=== PATIENT | male | born 1990 | race Caucasian/White ===

== ENCOUNTER 2019-12-12 12:21 | Inpatient (IN) | payer OTHER, BC ==
[2019-12-12] MEDS ORDERED: Metoclopramide 10 MG/2 ML SDV IVPUSH ONE (12:29)
[2019-12-12] MEDS ORDERED: Dextrose 5%-0.9% NaCl 1,000 ML IV SCH (12:30)
--- NOTE | 2019-12-12 12:34 | EDM.PDOCBH ---
ED HPI GENERAL MEDICAL PROBLEM - General Chief Complaint: Behavioral/Psych Stated Complaint: [facility] Time Seen by Provider: 12/12/19 12:29 Source of Information: Reports: Patient, EMS, Police History Limitations: Reports: No Limitations - History of Present Illness INITIAL COMMENTS - FREE TEXT/NARRATIVE: 29-year-old male presents to the ED per [facility]. Police are also here. They indicate that they got a call through dispatch for a 28-year-old male who had intentionally taken an overdose of medications in a suicide attempt. Patient appears very drowsy and is mildly dysarthric but is able to provide a useful history terms of old injuries but he cannot identify a specific time when he took medication. Apparently he took several tablets of Percocet again dosage unknown and not his prescription. Also took an excessive amount of Adderall reportedly. Unclear if he took any other medications. Has an unambiguous wish to be . He has many times that he does not wish to be here. He never gave any other further history as to why he was feeling suicidal. He is nauseated and has taken some Zofran. Denies any vomiting. Onset: Unknown/Unsure (On what time he took medications. Percocet contains Tylenol and oxycodone.) Onset Date: 12/12/19 Duration: Hour(s): Location: Reports: Generalized Quality: Reports: Other Severity: Moderate (Is somewhat lethargic and dysarthric.) Improves with: Reports: None Worsens with: Reports: None Context: Denies: Activity, Exercise, Lifting, Sick Contact, Trauma, Other Associated Symptoms: Reports: Loss of Appetite, Malaise, Nausea/Vomiting ( Nausea without vomiting), Weakness. Denies: Confusion, Chest Pain, Cough, cough w sputum, Diaphoresis, Fever/Chills, Headaches Treatments LEVER TENDER: Reports: Other (see below) (Tensional overdose of Percocet again dosage unknown. Apparently also Adderall tablets again dosage unknown. Possible other medications as well.) - Related Data Allergies Allergy/AdvReac Type Severity Reaction Status Date / Time No Known Allergies Allergy Verified 12/12/19 12:28 Home Meds: Home Meds Loratadine 10 mg PO DAILY PRN 12/12/19 [History] Past Medical History HEENT History: Reports: Allergic Rhinitis - Past Surgical History Oncologic Surgical History: Reports: Other (See Below) (Post reduction internal fixation of fracture left forearm with plates and screws. Type injury to the right foot from hydraulic injury on a work over rig. Apparently multiple fractures in his metatarsals. Abdominal surgery) ED ROS GENERAL - Review of Systems Review Of Systems: See Below Constitutional: Reports: Malaise, Fatigue, Decreased Appetite. Denies: Fever, Chills HEENT: Reports: No Symptoms Respiratory: Reports: No Symptoms Cardiovascular: Reports: No Symptoms Endocrine: Reports: Fatigue GI/Abdominal: Reports: Nausea (And suggesting the Percocet tablets.) : Reports: No Symptoms Musculoskeletal: Reports: Other (Chronic pain right foot) Skin: Reports: No Symptoms Neurological: Reports: Dizziness, Difficulty Walking, Weakness, Change in Speech (Arthritic speech again since taking overdose this morning). Denies: Confusion, Headache, Numbness, Pre-Existing Deficit, Seizure, Syncope, Tingling , Tremors, Trouble Speaking Psychiatric: Reports: Depression, Suicidal Ideation, Other (Beside attempt today by taking an excessive amount of) Hematologic/Lymphatic: Reports: No Symptoms ( medications not his.) Immunologic: Reports: No Symptoms ED EXAM, BEHAVIORAL HEALTH - Physical Exam Exam: See Below Exam Limited By: Physical Impairment (Quite lethargic and dysarthric speech secondary to being impaired by narcotic) General Appearance: Lethargic, Mild Distress, Other (Vital signs show temperature 36.1 with a heart rate of 85 and sinus respiratory 16 BP is 1965 with O2 sats of 96% on room air.) Eye Exam: Bilateral Eye: Normal Inspection (No nystagmus.), PERRL (Pulses are small 3 mm and minimally responsive to light.) Throat/Mouth: Normal Inspection, Normal Lips, Normal Oropharynx, Other (Tongue is moist.) Head: Atraumatic, Normocephalic Neck: Normal Inspection, Supple, Non-Tender, Full Range of Motion. No: Lymphadenopathy (L), Lymphadenopathy (R) Respiratory/Chest: No Respiratory Distress, Lungs Clear, Normal Breath Sounds, No Accessory Muscle Use Cardiovascular: Normal Peripheral Pulses, Regular Rate, Rhythm, No Edema, No Gallop, No Murmur, No Rub GI/Abdominal: Normal Bowel Sounds, Soft, Non-Tender, No Organomegaly, No Abnormal Bruit, No Mass, Pelvis Stable Back Exam: Normal Inspection, Full Range of Motion. No: CVA Tenderness (L), CVA Tenderness (R) Extremities: Normal Inspection, Normal Range of Motion, Non-Tender, No Pedal Edema, Normal Capillary Refill, Other (R extensor surface left forearm from previous open reduction internal fixation of fracture radius and ulna.) Neurological: Alert, Normal Reflexes, No Motor/Sensory Deficits, Dysarthria ( Mild dysarthria speech is still easily understood.), Other (And is unable to perform alternating movements for [id number] exam.) Psychiatric: Restless, Agitated ([place] agitated.), Suicidal Thoughts. No: Oriented (Went to do a time.), Visual Hallucinations, Grandiose Thoughts, Pressured Speech, Paranoid Thoughts Skin Exam: Warm, Dry, Intact, Normal color, No rash Endotracheal Intubation - Endotracheal Intubation Time of Intubation: 14:10 ET Intubation Indication: Respiratory Failure, Airway Protection Preparation: Suction, Balloon Tested, BVM Set Up, Difficult Airway Equip Pre-Oxygenation: Assisted with BVM, 100% FiO2 Anesthesia Meds: Etomidate, Midazolam (2mg ), Succinylcholine (140) Placement: Orotracheal Cords Visualized: Yes, Grade 1 Number of Attempts: 1 Confirmed By: CO2 Indicator, Bilateral Breath Sounds, Chest Xray Tube Secured By: By RT EKG INTERPRETATION EKG Date: 12/12/19 Time: 12:37 Rhythm: NSR Rate (Beats/Min): 67 [place]: LAD-Left [place] Deviation (Is 11 degrees) P-Wave: Enlarged (That her left atrial hypertrophy.) QRS: Other (Criteria for left ventricular appear to be due to deep S wave in V2) ST-T: Normal QT: Normal EKG Interpretation Comments: Borderline ECG COURSE, BEHAVIORAL HEALTH COMP - Course Vital Signs: Last Vital Signs Temp 36.1 C 12/12/19 12:25 Pulse 67 12/12/19 16:14 Resp 16 12/12/19 12:25 BP 104/68 12/12/19 16:14 Pulse Ox 100 12/12/19 16:14 Orders, Labs, Meds: Active Orders 24 hr Category Date Time Status Admission Status [Patient Status] [ADT] Routine ADT 12/12/19 16:16 Ordered EKG Documentation Completion [RC] STAT Care 12/12/19 12:31 Active Oxygen Therapy [RC] ASDIRECTED Care 12/12/19 12:32 Active RASS Sedation Scale [RC] ASDIRECTED Care 12/12/19 14:02 Active Urinary Catheter Assessment [RC] ASDIRECTED Care 12/12/19 14:04 Active Urinary Catheter Insertion [Insert Urinary Catheter] [ Care 12/12/19 14:05 Ordered OM.PC] Stat Ventilator Assessment [RT Ventilator, Adult] [] Care 12/12/19 14:00 Active ASDIRECTED Acetylcysteine [Acetadote 20%] 12,300 mg Med 12/12/19 16:30 Active Dextrose 5% in Water 200 ml IV ONETIME Dextrose 5%-0.9% NaCl [Dextrose 5%-Normal Saline] 1,000 Med 12/12/19 12:30 Active ml IV ASDIRECTED Lactated Ringers [Ringers, Lactated] 1,000 ml Med 12/12/19 16:02 Active IV .BOLUS Midazolam [Versed 5 MG/ML] 50 mg Med 12/12/19 15:15 Active Sodium Chloride 0.9% [Normal Saline] 40 ml IV TITRATE Norepinephrine [Levophed] 4 mg Med 12/12/19 14:15 Active Dextrose 5% in Water 246 ml IV TITRATE propofoL [Diprivan 50 ML] 50 ml Med 12/12/19 14:15 Active IV TITRATE Desired Level of Sedation (RASS) [AST] Click To Edit Ot 12/12/19 14:02 Ordered Medication Orders Dextrose/Sodium Chloride (Dextrose 5%-Normal Saline) 1,000 mls @ 999 mls/hr IV ASDIRECTED BRIANNA Last Admin: 12/12/19 12:44 Dose: 999 mls/hr Norepinephrine Bitartrate 4 mg (/ Dextrose/Water) 250 mls @ 15 mls/hr IV TITRATE BRIANNA; Protocol Last Titration: 12/12/19 15:58 Dose: 5 mcg/min, 18.75 mls/hr Admin: 12/12/19 14:14 Dose: 4 mcg/min, 15 mls/hr Propofol (Diprivan 50 Ml) 50 mls @ 2.449 mls/hr IV TITRATE BRIANNA; Protocol Last Admin: 12/12/19 14:23 Dose: 5 mcg/kg/min, 2.449 mls/hr Midazolam HCl 50 mg/ Sodium (Chloride) 50 mls @ 0.5 mls/hr IV TITRATE BRIANNA; Protocol Last Titration: 12/12/19 15:44 Dose: 5 mg/hr, 5 mls/hr Admin: 12/12/19 15:40 Dose: 0.5 mg/hr, 0.5 mls/hr Lactated Ringer's (Ringers, Lactated) 1,000 mls @ 999 mls/hr IV .BOLUS ONE Stop: 12/12/19 17:02 Last Admin: 12/12/19 16:07 Dose: 999 mls/hr Acetylcysteine 12,300 mg/ (Dextrose/Water) 261.5 mls @ 261.5 mls/hr IV ONETIME ONE Stop: 12/12/19 17:29 Laboratory Tests 12/12/19 12/12/19 12/12/19 Range/Units 12:50 12:50 12:50 WBC 5.66 (4.23-9.07) K/mm3 RBC 6.07 (4.63-6.08) M/mm3 Hgb 17.6 H (13.7-17.5) gm/dl Hct 53.3 H (40.1-51.0) % MCV 87.8 (79.0-92.2) fl MCH 29.0 (25.7-32.2) pg MCHC 33.0 (32.2-35.5) g/dl RDW Std Deviation 44.5 H (35.1-43.9) fL Plt Count 189 (163-337) K/mm3 MPV 10.6 (9.4-12.3) fl Neut % (Auto) 64.7 (34.0-67.9) % Lymph % (Auto) 21.0 L (21.8-53.1) % [place] % (Auto) 13.1 H (5.3-12.2) % Eos % (Auto) 0.5 L (0.8-7.0) Baso % (Auto) 0.5 (0.1-1.2) % Neut # (Auto) 3.66 (1.78-5.38) K/mm3 Lymph # (Auto) 1.19 L (1.32-3.57) K/mm3 [place] # (Auto) 0.74 (0.30-0.82) K/mm3 Eos # (Auto) 0.03 L (0.04-0.54) K/mm3 Baso # (Auto) 0.03 (0.01-0.08) K/mm3 Manual Slide Review Abnormal smear Puncture Site ABG pH (7.35-7.45) ABG pCO2 (35.0-45.0) mmHg ABG pO2 (80.0-100.0) mmHg ABG HCO3 (22.0-26.0) meq/L ABG O2 Saturation (96.0-97.0) % ABG Base Excess (-2-2.0) A-a Gradient mmHg O2 Delivery Device FiO2 (21.00-100.00) % Tidal Volume cc PEEP cmH20 Sodium 138 (136-145) mEq/L Potassium 4.1 (3.5-5.1) mEq/L Chloride 102 (98-107) mEq/L Carbon Dioxide 26 (21-32) mEq/L Anion Gap 14.1 (5-15) BUN 16 (7-18) mg/dL Creatinine 1.4 H (0.7-1.3) mg/dL Est Cr Clr Drug Dosing 73.96 mL/min Estimated GFR (MDRD) 59 (>60) mL/min BUN/Creatinine Ratio 11.4 L (14-18) Glucose 203 H (74-106) mg/dL Lactic Acid (0.4-2.0) mmol/L Calcium 8.6 (8.5-10.1) mg/dL Magnesium 2.2 (1.8-2.4) mg/dl Total Bilirubin 0.5 (0.2-1.0) mg/dL AST 22 (15-37) U/L ALT 56 (16-63) U/L Alkaline Phosphatase 83 (46-116) U/L Total Protein 7.1 (6.4-8.2) g/dl Albumin 3.3 L (3.4-5.0) g/dl Globulin 3.8 gm/dL Albumin/Globulin Ratio 0.9 L (1-2) TSH 3rd Generation 10.972 H (0.358-3.74) uIU/mL Urine Color (Yellow) Urine Appearance (Clear) Urine pH (5.0-8.0) Ur Specific [place] (1.005-1.030) Urine Protein (Negative) Urine Glucose (UA) (Negative) Urine Ketones (Negative) Urine Occult Blood (Negative) Urine Nitrite (Negative) Urine Bilirubin (Negative) Urine Urobilinogen (0.2-1.0) Ur Leukocyte Esterase (Negative) Urine RBC (0-5) /hpf Urine WBC (0-5) /hpf Ur Squamous Epith Cells (0-5) /hpf Calcium Oxalate Crystal (NONE) Urine Bacteria (FEW) /hpf Urine Mucus (FEW) /hpf Salicylates 0.4 L (2.8-20) mg/dL Urine Opiates Screen (QMFVGR=150) Ur Buprenorphine Scrn (CUTOFF=10) Ur Oxycodone Screen (TGX3MP=431) Urine Methadone Screen (CPT4XP=494) Ur Propoxyphene Screen (QXWHZX=946) Acetaminophen 41 H (10-30) ug/mL Ur Barbiturates Screen (DCXSHI=668) Ur Tricyclics Screen (TFTNRI=574) Ur Phencyclidine Scrn (CUTOFF=25) Ur Amphetamine Screen (ACATJJ=665) U Methamphetamines Scrn (ONALRD=796) U Benzodiazepines Scrn (XHVJHE=829) U Cocaine Metab Screen (GCBDCV=259) U Marijuana (THC) Screen (CUTOFF=50) Ethyl Alcohol 0.00 (0.00) gm% 12/12/19 12/12/19 12/12/19 Range/Units 12:50 12:50 13:12 WBC (4.23-9.07) K/mm3 RBC (4.63-6.08) M/mm3 Hgb (13.7-17.5) gm/dl Hct (40.1-51.0) % MCV (79.0-92.2) fl MCH (25.7-32.2) pg MCHC (32.2-35.5) g/dl RDW Std Deviation (35.1-43.9) fL Plt Count (163-337) K/mm3 MPV (9.4-12.3) fl Neut % (Auto) (34.0-67.9) % Lymph % (Auto) (21.8-53.1) % [place] % (Auto) (5.3-12.2) % Eos % (Auto) (0.8-7.0) Baso % (Auto) (0.1-1.2) % Neut # (Auto) (1.78-5.38) K/mm3 Lymph # (Auto) (1.32-3.57) K/mm3 [place] # (Auto) (0.30-0.82) K/mm3 Eos # (Auto) (0.04-0.54) K/mm3 Baso # (Auto) (0.01-0.08) K/mm3 Manual Slide Review Puncture Site ABG pH (7.35-7.45) ABG pCO2 (35.0-45.0) mmHg ABG pO2 (80.0-100.0) mmHg ABG HCO3 (22.0-26.0) meq/L ABG O2 Saturation (96.0-97.0) % ABG Base Excess (-2-2.0) A-a Gradient mmHg O2 Delivery Device FiO2 (21.00-100.00) % Tidal Volume cc PEEP cmH20 Sodium (136-145) mEq/L Potassium (3.5-5.1) mEq/L Chloride (98-107) mEq/L Carbon Dioxide (21-32) mEq/L Anion Gap (5-15) BUN (7-18) mg/dL Creatinine (0.7-1.3) mg/dL Est Cr Clr Drug Dosing mL/min Estimated GFR (MDRD) (>60) mL/min BUN/Creatinine Ratio (14-18) Glucose (74-106) mg/dL Lactic Acid 1.2 (0.4-2.0) mmol/L Calcium (8.5-10.1) mg/dL Magnesium (1.8-2.4) mg/dl Total Bilirubin (0.2-1.0) mg/dL AST (15-37) U/L ALT (16-63) U/L Alkaline Phosphatase (46-116) U/L Total Protein (6.4-8.2) g/dl Albumin (3.4-5.0) g/dl Globulin gm/dL Albumin/Globulin Ratio (1-2) TSH 3rd Generation (0.358-3.74) uIU/mL Urine Color Yellow (Yellow) Urine Appearance Clear (Clear) Urine pH 6.0 (5.0-8.0) Ur Specific [place] > or = 1.030 (1.005-1.030) Urine Protein 2+ H (Negative) Urine Glucose (UA) Negative (Negative) Urine Ketones Negative (Negative) Urine Occult Blood Negative (Negative) Urine Nitrite Negative (Negative) Urine Bilirubin Negative (Negative) Urine Urobilinogen 0.2 (0.2-1.0) Ur Leukocyte Esterase Negative (Negative) Urine RBC 0-5 (0-5) /hpf Urine WBC 0-5 (0-5) /hpf Ur Squamous Epith Cells 0-5 (0-5) /hpf Calcium Oxalate Crystal Few H (NONE) Urine Bacteria Few (FEW) /hpf Urine Mucus Many H (FEW) /hpf Salicylates (2.8-20) mg/dL Urine Opiates Screen (OZHROB=216) Ur Buprenorphine Scrn (CUTOFF=10) Ur Oxycodone Screen (TSJ3JJ=384) Urine Methadone Screen (LSX9SN=305) Ur Propoxyphene Screen (VGOVJW=168) Acetaminophen Cancelled (10-30) ug/mL Ur Barbiturates Screen (DGEYWL=348) Ur Tricyclics Screen (UYSHNF=205) Ur Phencyclidine Scrn (CUTOFF=25) Ur Amphetamine Screen (PXRWIE=551) U Methamphetamines Scrn (TDJZFZ=555) U Benzodiazepines Scrn (PEFKXT=493) U Cocaine Metab Screen (HHWONE=535) U Marijuana (THC) Screen (CUTOFF=50) Ethyl Alcohol (0.00) gm% 12/12/19 12/12/19 12/12/19 Range/Units 13:12 14:24 14:45 WBC (4.23-9.07) K/mm3 RBC (4.63-6.08) M/mm3 Hgb (13.7-17.5) gm/dl Hct (40.1-51.0) % MCV (79.0-92.2) fl MCH (25.7-32.2) pg MCHC (32.2-35.5) g/dl RDW Std Deviation (35.1-43.9) fL Plt Count (163-337) K/mm3 MPV (9.4-12.3) fl Neut % (Auto) (34.0-67.9) % Lymph % (Auto) (21.8-53.1) % [place] % (Auto) (5.3-12.2) % Eos % (Auto) (0.8-7.0) Baso % (Auto) (0.1-1.2) % Neut # (Auto) (1.78-5.38) K/mm3 Lymph # (Auto) (1.32-3.57) K/mm3 [place] # (Auto) (0.30-0.82) K/mm3 Eos # (Auto) (0.04-0.54) K/mm3 Baso # (Auto) (0.01-0.08) K/mm3 Manual Slide Review Puncture Site Rt radial ABG pH 7.26 L (7.35-7.45) ABG pCO2 54.6 H (35.0-45.0) mmHg ABG pO2 107.0 H (80.0-100.0) mmHg ABG HCO3 23.9 (22.0-26.0) meq/L ABG O2 Saturation 97.5 H (96.0-97.0) % ABG Base Excess -3.6 L (-2-2.0) A-a Gradient 39 mmHg O2 Delivery Device Ventilator FiO2 30.00 (21.00-100.00) % Tidal Volume 550.0 cc PEEP 5.0 cmH20 Sodium (136-145) mEq/L Potassium (3.5-5.1) mEq/L Chloride (98-107) mEq/L Carbon Dioxide (21-32) mEq/L Anion Gap (5-15) BUN (7-18) mg/dL Creatinine (0.7-1.3) mg/dL Est Cr Clr Drug Dosing mL/min Estimated GFR (MDRD) (>60) mL/min BUN/Creatinine Ratio (14-18) Glucose (74-106) mg/dL Lactic Acid (0.4-2.0) mmol/L Calcium (8.5-10.1) mg/dL Magnesium (1.8-2.4) mg/dl Total Bilirubin (0.2-1.0) mg/dL AST (15-37) U/L ALT (16-63) U/L Alkaline Phosphatase (46-116) U/L Total Protein (6.4-8.2) g/dl Albumin (3.4-5.0) g/dl Globulin gm/dL Albumin/Globulin Ratio (1-2) TSH 3rd Generation (0.358-3.74) uIU/mL Urine Color (Yellow) Urine Appearance (Clear) Urine pH (5.0-8.0) Ur Specific [place] (1.005-1.030) Urine Protein (Negative) Urine Glucose (UA) (Negative) Urine Ketones (Negative) Urine Occult Blood (Negative) Urine Nitrite (Negative) Urine Bilirubin (Negative) Urine Urobilinogen (0.2-1.0) Ur Leukocyte Esterase (Negative) Urine RBC (0-5) /hpf Urine WBC (0-5) /hpf Ur Squamous Epith Cells (0-5) /hpf Calcium Oxalate Crystal (NONE) Urine Bacteria (FEW) /hpf Urine Mucus (FEW) /hpf Salicylates (2.8-20) mg/dL Urine Opiates Screen Presumptive positive H (HXLCRY=431) Ur Buprenorphine Scrn Negative (CUTOFF=10) Ur Oxycodone Screen Presumptive positive H (RZH8RM=592) Urine Methadone Screen Negative (ZPL7IQ=843) Ur Propoxyphene Screen Negative (KWRIJO=554) Acetaminophen 42 H (10-30) ug/mL Ur Barbiturates Screen Negative (DMDSHZ=662) Ur Tricyclics Screen Negative (SEEJXK=078) Ur Phencyclidine Scrn Negative (CUTOFF=25) Ur Amphetamine Screen Negative (AODXKY=527) U Methamphetamines Scrn Presumptive positive H (SVPCSJ=910) U Benzodiazepines Scrn Negative (WDIJBR=392) U Cocaine Metab Screen Negative (LKFZKH=631) U Marijuana (THC) Screen Negative (CUTOFF=50) Ethyl Alcohol (0.00) gm% Medications Generic Name Dose Route Start Last Admin Trade Name Freq PRN Reason Stop Dose Admin Dextrose/Sodium Chloride 1,000 mls @ 999 mls/hr 12/12/19 12:30 12/12/19 12:44 Dextrose 5%-Normal Saline IV 999 mls/hr ASDIRECTED BRIANNA Administration Norepinephrine Bitartrate 4 mg 250 mls @ 15 mls/hr 12/12/19 14:15 12/12/19 15 :58 / Dextrose/Water IV 5 mcg/min TITRATE BRIANNA 18.75 mls/hr Titration Protocol 4 MCG/MIN Propofol 50 mls @ 2.449 mls/hr 12/12/19 14:15 12/12/19 14:23 Diprivan 50 Ml IV 5 mcg/kg/min TITRATE BRIANNA 2.449 mls/hr Administration Protocol 5 MCG/KG/MIN Midazolam HCl 50 mg/ Sodium 50 mls @ 0.5 mls/hr 12/12/19 15:15 12/12/19 15:44 Chloride IV 5 mg/hr TITRATE BRIANNA 5 mls/hr Titration Protocol 0.5 MG/HR Lactated Ringer's 1,000 mls @ 999 mls/hr 12/12/19 16:02 12/12/19 16:07 Ringers, Lactated IV 12/12/19 17:02 999 mls/hr .BOLUS ONE Administration Acetylcysteine 12,300 mg/ 261.5 mls @ 261.5 mls/hr 12/12/19 16:30 Dextrose/Water IV 12/12/19 17:29 ONETIME ONE Discontinued Medications Generic Name Dose Route Start Last Admin Trade Name Hira PRN Reason Stop Dose Admin Etomidate 25 mg 12/12/19 13:50 12/12/19 13:50 Amidate IVPUSH 12/12/19 13:51 25 mg ONETIME ONE Administration Sodium Chloride 1,000 mls @ 1,000 mls/hr 12/12/19 14:00 12/12/19 14:00 Normal Saline IV 12/12/19 14:59 1,000 mls/hr ONETIME ONE Administration Sodium Chloride Confirm 12/12/19 13:56 12/12/19 14:01 Normal Saline Administered 12/12/19 13:57 Not Given Dose 1,000 mls @ as directed .ROUTE .STK-MED ONE Lactated Ringer's Confirm 12/12/19 16:00 12/12/19 16:06 Ringers, Lactated Administered 12/12/19 16:01 Not Given Dose 1,000 mls @ as directed .ROUTE .STK-MED ONE Metoclopramide HCl 10 mg 12/12/19 12:29 12/12/19 12:44 Reglan IVPUSH 12/12/19 12:30 10 mg ONETIME ONE Administration Midazolam HCl 2 mg 12/12/19 13:49 12/12/19 13:49 Versed 1 Mg/Ml IVPUSH 12/12/19 13:50 2 mg ONETIME ONE Administration Succinylcholine Chloride 125 mg 12/12/19 13:51 12/12/19 13:51 Quelicin IV 12/12/19 13:52 125 mg ONETIME ONE Administration Vecuronium [place] 9 mg 12/12/19 14:01 12/12/19 14:02 Vecuronium IVPUSH 12/12/19 14:02 9 mg ONETIME ONE Administration Re-Assessment/Re-Exam: 29-year-old male Zentz to the ED per [facility]. It is unclear who summoned the police through the dispatch center about a suicidal male who had taken an overdose of medication. He reports that he does not want to be here. Percocet tablets unknown dosage sometime within the last 2 to 3 hours. Quite lethargic at the time he was seen in the ED indicating he is taking them longer than 1 hour ago. He took Adderall tablets as well again dosage unknown. Clear if he took any other medications as well. He has no history of suicidal attempts in the past. It is unclear what precipitated suicidal ideation and attempt today. At the initial time of assessment his vital signs were stable. However time he did become slightly more lethargic and required oxygen supplementation at 2 L/min. Naloxone was withheld as it will precipitate aggressive behaviors and likely need for further chemical or physical restraint. Since it is been more than an hour since ingestion was felt that taking or trying to get him to drink the charcoal carried more risks than benefits. He will require initial Tylenol level and repeat every 2 hours. If he becomes respiratory depressed he will require intubation. Have blood alcohol. Will have serum salicylate levels checked and urine drug screen. Routine labs and ECG to be performed. Re-Assessment/Re-Exam Date: 12/12/19 (Hematology reveals a white count of 5.66. The auto differential shows 64% 5% neutrophils. Hemoglobin is 17.6 with hematocrit of 53.3 indicating moderate hemoconcentration. Platelet count 189, 000. Allises shows 2+ proteinuria but no signs of infection. ) Re-Assessment/Re-Exam Time: 13:43 (Salicylate level level is 0.4. Opiates are presumptively positive. Presumptively positive for oxycodone which would go along with taking an overdose of Percocet. Acetaminophen level is 41 normal range being 10-30.) Medical Clearance: 12/12/19 14:30 she required inotropic support. He required a second liter of IV fluids under pressure and blood pressure dropped as low as 72 systolic with a map of 49. It was before the introduction of propofol drip and Vecuronium IV. Levophed drip started at 2 mcg/min achieved a blood pressure of 80/57 and then was titrated up to 4 mg/min 12/12/19 15:17 current blood pressure is 127/85. Heart rate is 74 O2 sats 100% . Dr. Singer is starting a central line on the patient in the ED at this time and then he will be transferred to the intensive care unit. Second acetaminophen level was drawn at 1450 hrs. pending these results if it is going up at all he will require treatment with acetylcysteine. Lactic acid returned at 1.2. TSH returned in the hypothyroid range at 10.9. 12/12/19 16:20 ABG's revealed a pH of 7.26 and a bicarb of 54.6. PO2 was 107. Ventilator rate was increased from 14 to 18 breaths/min. Departure - Departure Time of Disposition: 16:20 Disposition: Admitted As Inpatient 64 Condition: Serious Clinical Impression: Hypotension due to drugs, Hypoxia Intentional drug overdose Qualifiers: Encounter type: initial encounter Qualified Code(s): T50.902A - Poisoning by unspecified drugs, medicaments and biological substances, intentional self-harm , initial encounter Intentional acetaminophen overdose Qualifiers: Encounter type: initial encounter Qualified Code(s): T39.1X2A - Poisoning by 4- Aminophenol derivatives, intentional self-harm, initial encounter - Discharge Information *PRESCRIPTION DRUG MONITORING PROGRAM REVIEWED*: Not Applicable *COPY OF PRESCRIPTION DRUG MONITORING REPORT IN PATIENT GOMEZ: Not Applicable Instructions: Drug Overdose, Acetaminophen Overdose, Hypoxemia, Opioid Overdose Referrals: PCP,Unknown [Primary Care Provider] - Forms: ED Department Discharge Sepsis Event Note - Evaluation Sepsis Screening Result: No Definite Risk - Focused Exam Vital Signs: Vital Signs Temp Pulse Resp BP Pulse Ox 12/12/19 16:14 67 104/68 100 12/12/19 12:25 36.1 C 85 16 131/66 96 Date Exam was Performed: 12/12/19 Time Exam was Performed: 16:19 - My Orders Last 24 Hours: My Active Orders 12/12/19 12:30 Dextrose 5%-0.9% NaCl [Dextrose 5%-Normal Saline] 1,000 ml IV ASDIRECTED 12/12/19 12:31 EKG Documentation Completion [RC] STAT 12/12/19 12:32 Oxygen Therapy [RC] ASDIRECTED 12/12/19 14:00 Ventilator Assessment [RT Ventilator, Adult] [RC] ASDIRECTED 12/12/19 14:02 RASS Sedation Scale [RC] ASDIRECTED Desired Level of Sedation (RASS) [AST] Click To Edit 12/12/19 14:04 Urinary Catheter Assessment [RC] ASDIRECTED 12/12/19 14:05 Urinary Catheter Insertion [Insert Urinary Catheter] [OM.PC] Stat 12/12/19 14:15 Norepinephrine [Levophed] 4 mg Dextrose 5% in Water 246 ml IV TITRATE propofoL [Diprivan 50 ML] 50 ml IV TITRATE 12/12/19 16:16 Admission Status [Patient Status] [ADT] Routine 12/12/19 16:30 Acetylcysteine [Acetadote 20%] 12,300 mg Dextrose 5% in Water 200 ml IV ONETIME - Assessment/Plan Last 24 Hours: My Active Orders 12/12/19 12:30 Dextrose 5%-0.9% NaCl [Dextrose 5%-Normal Saline] 1,000 ml IV ASDIRECTED 12/12/19 12:31 EKG Documentation Completion [RC] STAT 12/12/19 12:32 Oxygen Therapy [RC] ASDIRECTED 12/12/19 14:00 Ventilator Assessment [RT Ventilator, Adult] [RC] ASDIRECTED 12/12/19 14:02 RASS Sedation Scale [RC] ASDIRECTED Desired Level of Sedation (RASS) [AST] Click To Edit 12/12/19 14:04 Urinary Catheter Assessment [RC] ASDIRECTED 12/12/19 14:05 Urinary Catheter Insertion [Insert Urinary Catheter] [OM.PC] Stat 12/12/19 14:15 Norepinephrine [Levophed] 4 mg Dextrose 5% in Water 246 ml IV TITRATE propofoL [Diprivan 50 ML] 50 ml IV TITRATE 12/12/19 16:16 Admission Status [Patient Status] [ADT] Routine 12/12/19 16:30 Acetylcysteine [Acetadote 20%] 12,300 mg Dextrose 5% in Water 200 ml IV ONETIME
[2019-12-12] MEDS ORDERED: Midazolam 1 MG/ML 2 ML SDV IVPUSH ONE (13:49)
[2019-12-12] MEDS ORDERED: Etomidate 2 MG/ML 20 ML SDV IVPUSH ONE ×2 (13:50→16:00)
[2019-12-12] MEDS ORDERED: Succinylcholine 200 MG/10 ML MDV IV ONE (13:51)
[2019-12-12] MEDS ORDERED: Sodium Chloride 0.9% 1,000 ML ONE (13:56)
[2019-12-12] MEDS ORDERED: Sodium Chloride 0.9% 1,000 ML IV ONE (14:00)
[2019-12-12] MEDS: Norepinephrine 4 MG in Dextrose 5% in Water 246 ML IV SCH ×2 (14:14)
[2019-12-12] MEDS ORDERED: propofoL 50 ML IV SCH (14:15)
--- NOTE | 2019-12-12 14:38 | CR ---
Chest: Portable supine view of the chest was obtained. Comparison: No prior chest x-ray. Tip of endotracheal tube lies at the upper level of clavicles. Tip of nasogastric tube is within the stomach. Heart size and mediastinum are normal. Lungs show no acute parenchymal change. Bony structures are grossly intact. Impression: 1. Endotracheal tube and nasogastric tube as noted above. 2. Nothing acute is otherwise seen. Diagnostic code #3 Study was dictated in [place] Standard Time
[2019-12-12] MEDS: Midazolam 50 MG in Sodium Chloride 0.9% 40 ML IV SCH ×3 (15:40→23:28)
[2019-12-12] MEDS ORDERED: Acetylcysteine 20% 200 MG/ML 30 ML SDV IV ONE (15:57)
[2019-12-12] MEDS ORDERED: Succinylcholine 200 MG/10 ML MDV ONE (16:00)
[2019-12-12] MEDS ORDERED: Lactated Ringers 1,000 ML ONE (16:00)
[2019-12-12] MEDS ORDERED: Midazolam 1 MG/ML 5 ML SDV ONE (16:00)
[2019-12-12] MEDS ORDERED: Lactated Ringers 1,000 ML IV ONE (16:02)
[2019-12-12] MEDS ORDERED: WATER IV ONE ×2 (16:30)
[2019-12-12] MEDS ORDERED: ACETYLCYSTEINE IV ONE ×2 (16:30)
[2019-12-12] MEDS ORDERED: DEXTROSE 5% IV ONE ×2 (16:30)
--- NOTE | 2019-12-12 16:46 | PCM.HP.2 ---
H&P History of Present Illness - General Date of Service: 12/12/19 Admit Problem/Dx: Admission Diagnosis/Problem Admission Diagnosis/Problem Intentional overdose of drug in tablet form - History of Present Illness Initial Comments - Free Text/Narative: Patient intubated upon my evaluation so information obtained by chart review and verbal report from staff. "29-year-old male presents to the ED per [facility]. Police are also here. They indicate that they got a call through dispatch for a 28-year-old male who had intentionally taken an overdose of medications in a suicide attempt. Patient appears very drowsy and is mildly dysarthric but is able to provide a useful history terms of old injuries but he cannot identify a specific time when he took medication. Apparently he took several tablets of Percocet again dosage unknown and not his prescription. Also took an excessive amount of Adderall reportedly. Unclear if he took any other medications. Has an unambiguous wish to be . He has many times that he does not wish to be here. He never gave any other further history as to why he was feeling suicidal. He is nauseated and has taken some Zofran. Denies any vomiting." - Related Data Allergies/Adverse Reactions: Allergies Allergy/AdvReac Type Severity Reaction Status Date / Time No Known Allergies Allergy Verified 12/12/19 12:28 Home Medications: Home Meds Loratadine 10 mg PO DAILY PRN 12/12/19 [History] Past Medical History HEENT History: Reports: Allergic Rhinitis Cardiovascular History: Reports: Hypertension Respiratory History: Reports: None Gastrointestinal History: Reports: Hemorrhoids Genitourinary History: Reports: None Musculoskeletal History: Reports: Fracture Neurological History: Reports: None Psychiatric History: Reports: Depression, Suicide Attempt, Suicidal Ideation Endocrine/Metabolic History: Reports: None Hematologic History: Reports: None Immunologic History: Reports: None Oncologic (Cancer) History: Reports: None Dermatologic History: Reports: None - Infectious Disease History Infectious Disease History: Reports: None - Past Surgical History Oncologic Surgical History: Reports: Other (See Below) (Post reduction internal fixation of fracture left forearm with plates and screws. Type injury to the right foot from hydraulic injury on a work over rig. Apparently multiple fractures in his metatarsals. Abdominal surgery) Social & Family History - Tobacco Use Smoking Status *Q: Never Smoker - Caffeine Use Caffeine Use: Reports: Coffee - Recreational Drug Use Recreational Drug Use: No H&P Review of Systems - Review of Systems: Review Of Systems: Unable To Obtain Reason Not Obtained: Patient sedated and intubated Exam - Exam Exam: See Below - Vital Signs Vital Signs: Last Vital Signs Temp 96.9 F 12/12/19 12:25 Pulse 67 12/12/19 16:14 Resp 16 12/12/19 12:25 BP 104/68 12/12/19 16:14 Pulse Ox 100 12/12/19 16:14 Weight: 81.647 kg - Exam Quality Assessment: Supplemental Oxygen, Urinary Catheter General: Sedated HEENT: Conjunctiva Clear, Pupils Equal, Pupils Reactive, Abnormal Pupils Neck: Supple, Trachea Midline, +2 Carotid Pulse wo Bruit, Full Range of Motion. No: Lymphadenopathy Lungs: Clear to Auscultation, Normal Respiratory Effort. No: Crackles, Rales, Rhonchi, Wheezing Cardiovascular: Regular Rhythm, Tachycardia. No: Systolic Murmur, Diastolic Murmur, Rubs, Gallop/S3, Gallop/S4 GI/Abdominal Exam: Normal Bowel Sounds, Soft, Non-Tender Extremities: Normal Inspection, Normal Range of Motion, No Pedal Edema, Normal Capillary Refill Peripheral Pulses: 2+: Brachial (L), Brachial (R), Dorsalis Pedis (L), Dorsalis Pedis (R) Skin: Warm - Patient Data Result Diagrams: 12/12/19 12:50 12/12/19 22:47 Sepsis Event Note - Evaluation Sepsis Screening Result: No Definite Risk - Focused Exam Vital Signs: Vital Signs Temp Pulse Resp BP Pulse Ox 12/12/19 16:14 67 104/68 100 12/12/19 12:25 96.9 F 85 16 131/66 96 Date Exam was Performed: 12/13/19 Time Exam was Performed: 00:54 - Problem List (1) Suicide attempt by drug ingestion SNOMED Code(s): 22204217, 99457534 ICD Code: T50.902A - POISONING BY UNSP DRUG/MEDS/BIOL SUBST, SELF-HARM, INIT Status: Acute Current Visit: Yes (2) Hypotension due to drugs Status: Acute Current Visit: Yes (3) Hypoxia SNOMED Code(s): 833158413 ICD Code: R09.02 - HYPOXEMIA Status: Acute Current Visit: Yes (4) Intentional acetaminophen overdose SNOMED Code(s): 304983539 ICD Code: T39.1X2A - POISONING BY 4-AMINOPHENOL DERIVATIVES, SELF-HARM, INIT Status: Acute Current Visit: Yes Qualifiers: Encounter type: initial encounter Qualified Code(s): T39.1X2A - Poisoning by 4-Aminophenol derivatives, intentional self-harm, initial encounter (5) Hyperglycemia SNOMED Code(s): 80781941 ICD Code: R73.9 - HYPERGLYCEMIA, UNSPECIFIED Status: Acute Current Visit : Yes (6) Polysubstance abuse SNOMED Code(s): 009214956 ICD Code: F19.10 - OTHER PSYCHOACTIVE SUBSTANCE ABUSE, UNCOMPLICATED Status : Acute Current Visit: Yes (7) Acute kidney injury SNOMED Code(s): 63900211, 61598414 ICD Code: N17.9 - ACUTE KIDNEY FAILURE, UNSPECIFIED Status: Acute Current Visit: Yes (8) Calcium oxalate crystals in urine SNOMED Code(s): 825153468 ICD Code: R82.998 - OTHER ABNORMAL FINDINGS IN URINE Status: Acute Current Visit: Yes Problem List Initiated/Reviewed/Updated: Yes Assessment/Plan Comment:: Suicide attempt by drug ingestion Hypotension and hypoxemia due to medication overdose Acetaminophen toxicity Calcium oxalate crystals in urine in the setting of unknown amount of medications Acute kidney injury Polysubstance abuse Alert and responsive upon arrival to the ED Mental status declined to the point that patient required intubation for airway protection UDS + methamphetamines, opiates and oxycodone Tylenol level 41, normal 20 Calcium oxalate crystals in urine, unknown if he ingested ethylene glycol, gap normal on admission and patient not acidotic; in the setting of intoxication will need to repeat BMP to make sure that he does not become acidotic metabolically Asked primary nurse to contact poison control for recommendations on NAC dosing. POISON CONTROL INFORMATION - Case # [id number] - Initial call at 3:38PM(central time) made by ER nurse, recommendations to *Start 21 hour infusion protocol for N-acetyl cysteine, 2 hours prior to completion of infusion check liver function tests, Tylenol level and INR if these normal then stop protocol, if abnormal notofy poison control for recommendations on further dosing requirements *As for Adderall patient needs sedation with Propofol and Benzodiazepines, effects should wear off within 1-2 days, adjust infusion rate to control symptoms as needed - Poison control called this facility at 5PM(central time), spoke with Meera and reiterated initial recommendation At the same time that patient's respiratory status declined his hemodynamic parameters changed and he became hypotensive with MAP 50s for which he was started on norepinephrine. PLAN BY SYSTEMS Neurologic: Continue sedation with Versed and Propofol for now and taper down as tolerated. Goal RASS -4 to 0. Seizure precautions for next 12-14h as per poison control. Minimize central acting medications as possible. Daily sedation vacation. Pulmonary: Start mechanical ventilation. Daily spontaneous breathing trials Endotracheal tube care by RT. Regular suctioning. Aspiration precautions. ABGs in the morning. Cardiovascular: Central line placement for caustic IV medication requirement Continuous cardiac monitorization. VS q1h. CVP Monitoring. Continue norepinephrine, goal MAP above 65, taper down as tolerated IVF with LR at 250ml/hr Kidney and electrolytes: Insert Monique catheter for output monitoring. Goal urine output >40ml/hr Repeat BMP in PM with Mg and PO4. Ethylene glycol level. Repeat UA in PM for calcium oxalate crystals. Strict monitoring of intake, output and overall fluid balance. Maintain neutral as possible. Avoid nephrotoxic medications. Monitor electrolytes and replace as needed. Trend creatinine and BUN. GI, Liver and nutrition: N-acetyl cysteine 21 hour infusion protocol. Repeat Tylenol level, CMP as well as PT/INR in PM Follow up with poison control OG tube insertion and care by nursing staff. Start enteral nutrition in AM. Endocrine: Scheduled Accu-checks every 6 hours while NPO Hypoglycemia protocol in place. Infectious disease: Trend temperature. Panculture if febrile. No need for antibiotic therapy for now Hematology and coagulation: Monitor for signs of active bleeding. Repeat PT/INR at PM. No active bleeding, no coagulopathy to correct, no need to transfuse blood products at the moment. Goal Hb >7g/dL Musculoskeletal and skin: Bed turn rotation by nursing staff. Daily evaluation for pressure ulcers. Psychiatric: Obtain records from [place] Obtain controlled substance monitoring program record for patient Psychiatry consult once appropriate Monitor for drug toxicities as per primary problem. PROPHYLAXIS: DVT- SCDs due to risk of coagulopathy secondary to Tylenol overdose GI- Pantoprazole CODE STATUS: FULL CODE DISPOSITION: Patient will be admitted to the ICU for mechanical ventilation and monitorization of drug toxicities. Will do spontaneous breathing trial in AM. He will need to transition to inpatient psychiatry once medically stable. - Mortality Measure Prognosis:: Good Central Line Insertion - Central Line Insertion Site: internal jugular (R) Prep: CDC/MBT Guidelines, Sterile Drapes, Chlorhexidine Lumen: triple Gauge: 7Fr Local Anesthesia - Lidocaine (Xylocaine): 1% Plain Local Anesthetic Volume: 3cc Ultrasound guided: Yes Micropuncture kit used: Yes CL Complications: No Secured with suture: Yes Post placement confirmation: CXR, all ports aspirated, all ports flushed CXR post-procedure: no pneumothorax, no hemothorax Dressing applied: by provider, other (Tegaderm with antimicrobial gel attachement)
[2019-12-12] MEDS ORDERED: Pantoprazole 40 MG Vial IVPUSH SCH (17:00)
[2019-12-12] MEDS: Lactated Ringers 1,000 ML IV SCH (17:19)
[2019-12-12] MEDS ORDERED: propofoL 100 ML ONE (22:12)
--- NOTE | 2019-12-12 22:19 | PCM.PRNOTE ---
- Free Text/Narrative Note: Central Line Placement Date: 12/12/19 Time: 15:56 Indication: Hemodynamic monitoring and need for caustic drug use Attending: Margot Singer MD A time-out was completed verifying correct patient, procedure, site, positioning , and special equipment if applicable. The patient was placed in a dependent position appropriate for central line placement based on the vein to be cannulated. The patients right neck was prepped and draped in sterile fashion. 1% Lidocaine was used to anesthetize the surrounding skin area. A triple lumen 7-Italian Cordis catheter was introduced into the the internal jugular using the Seldinger technique and under ultrasound guidance. The catheter was threaded smoothly over the guide wire and appropriate blood return was obtained. Each lumen of the catheter was evacuated of air and flushed with sterile saline. The catheter was then sutured in place to the skin and a sterile dressing applied. Perfusion to the extremity distal to the point of catheter insertion was checked and found to be adequate. Estimated Blood Loss: 5mL The patient tolerated the procedure well and there were no complications.
[2019-12-12] MEDS: propofoL 100 ML IV SCH (23:26)
[2019-12-13] MEDS ORDERED: Magnesium Sulfate/Water 2 GM in Premix Bag 1 BAG IV ONE (01:05)
[2019-12-13] MEDS: Potassium Chloride 10 MEQ in Premix Bag 1 BAG IV SCH ×4 (01:41→04:46)
[2019-12-13] MEDS: Midazolam 50 MG in Sodium Chloride 0.9% 40 ML IV SCH ×6 (01:45→22:28)
[2019-12-13] MEDS ORDERED: WATER IV ONE ×2 (03:00)
[2019-12-13] MEDS ORDERED: ACETYLCYSTEINE IV ONE ×2 (03:00)
[2019-12-13] MEDS ORDERED: DEXTROSE 5% IV ONE ×2 (03:00)
[2019-12-13] MEDS: propofoL 100 ML IV SCH ×5 (03:31→21:33)
[2019-12-13] MEDS ORDERED: 50% Dextrose in Water 50 ML Syringe IVPUSH PRN (05:49)
--- NOTE | 2019-12-13 09:38 | CR ---
Chest: Portable supine view of the chest is obtained. Comparison: Prior chest x-ray of 12/12/19. Heart size and mediastinum are normal. Tip of endotracheal tube lies slightly below the inferior level of the clavicles in satisfactory position. Nasogastric tube is seen with tip being within the stomach. Right-sided jugular line is noted with tip lying within the right atrium. Lungs are clear and no acute parenchymal change. Bony structures are unremarkable. No pneumothorax is seen on this supine study. Impression: 1. Right-sided jugular line with tip lying within the right atrium. 2. Satisfactory position of endotracheal tube and nasogastric tube. 3. Nothing acute is otherwise seen on supine chest x-ray. Diagnostic code #2 This report was dictated in [place] Standard Time
[2019-12-13] MEDS: Lactated Ringers 1,000 ML IV SCH ×2 (10:38→19:22)
[2019-12-13] MEDS ORDERED: Potassium Phosphates 30 MMOLE in Sodium Chloride 0.9% 500 ML IV ONE (14:00)
[2019-12-13] MEDS ORDERED: Sodium Chloride 0.9% 1,000 ML ONE ×2 (16:37→17:38)
[2019-12-13] MEDS: LORazepam 2 MG/ML SDV IVPUSH PRN ×4 (16:49→17:05)
[2019-12-13] MEDS ORDERED: Labetalol 100 MG/20 ML MDV IVPUSH ONE ×2 (16:55→17:05)
[2019-12-13] MEDS ORDERED: Lactated Ringers 1,000 ML IV ONE (16:56)
[2019-12-13] MEDS ORDERED: Succinylcholine 200 MG/10 ML MDV IV ONE (17:00)
[2019-12-13] MEDS ORDERED: SODIUM CHLORIDE 0.9% IV SCH (17:15)
[2019-12-13] MEDS ORDERED: [UNRECOGNIZED DRUG - OTHER] IV SCH (17:15)
[2019-12-13] MEDS ORDERED: Midazolam 1 MG/ML 5 ML SDV ONE (17:30)
[2019-12-13 17:36] LABS: ACETAMINOPHEN 0 ug/mL (10-30)
[2019-12-13] MEDS ORDERED: Vecuronium 10 MG in Sodium Chloride 0.9% 100 ML IV ONE (17:45)
[2019-12-13] MEDS ORDERED: Etomidate 2 MG/ML 20 ML SDV IVPUSH ONE (18:04)
[2019-12-13] MEDS: fentaNYL 2,500 MCG in Sodium Chloride 0.9% 200 ML IV SCH (18:21)
[2019-12-13] MEDS: Norepinephrine 4 MG in Dextrose 5% in Water 246 ML IV SCH ×2 (18:30)
[2019-12-13] MEDS ORDERED: NORMAL SALINE IV SCH (19:45)
[2019-12-13] MEDS ORDERED: VECURONIUM IV SCH (19:45)
[2019-12-13] MEDS: Vecuronium 10 MG in Sodium Chloride 0.9% 100 ML IV SCH ×3 (19:45→23:22)
[2019-12-13] MEDS ORDERED: Sodium Chloride 0.9% 100 ML ONE ×2 (21:03→23:05)
--- NOTE | 2019-12-13 21:10 | CR ---
Chest: Portable view of the chest was obtained. Comparison: Prior chest x-ray of 12/12/19. Increasing density within the left base from prior study presumably due to atelectasis. Endotracheal tube lies close to the owen by about 5 mm. Position appears to have change from previous exam. Right jugular line is unchanged. Nasogastric tube is again noted. Heart size and mediastinum are within normal limits. Impression: 1. Tip of endotracheal tube about 5 mm from the owen. 2. Increased density within the left lung base as an interval change from prior study presumably due to atelectasis. 3. Stable jugular line and nasogastric tube. Diagnostic code #3 Study was dictated in [place] Standard Time
--- NOTE | 2019-12-13 21:42 | PCM.PN ---
- General Info Date of Service: 12/13/19 Subjective Update: INTERVAL HISTORY AND OVERNIGHT EVENTS Patient required high sedation doses throughout the night Drips - Levophed - Propofol - Versed - NAC 16 hour bag started at 3AM Mechanical Ventilation - 500/14/30% - Pressures 15/8 - Patient Data Weight - Most Recent: 82.599 kg - Exam Quality Assessment: Supplemental Oxygen, Central Line/PICC, Urine Catheter, DVT Prophylaxis General: Sedated HEENT: Pupils Equal, Pupils Reactive Neck: Trachea Midline, No JVD, No Thyromegaly, +2 Carotid Pulse wo Bruit. No: Lymphadenopathy Lungs: Clear to Auscultation. No: Crackles, Rales, Rhonchi, Rub Cardiovascular: Regular Rhythm, Tachycardia. No: Murmurs, Gallops, Rubs GI/Abdominal Exam: Normal Bowel Sounds, Soft, Non-Tender Extremities: Normal Inspection, No Pedal Edema Sepsis Event Note - Evaluation Sepsis Screening Result: No Definite Risk - Focused Exam Vital Signs: Vital Signs Temp Temp Pulse Resp BP BP Pulse Ox 12/13/19 21:00 98.1 F 17 133/74 105/71 99 12/13/19 20:43 16 12/13/19 20:00 98.2 F 16 134/82 132/70 100 12/13/19 19:00 98.4 F 17 134/75 99 12/13/19 18:00 101.1 F H 117 H 101/59 L 96 12/13/19 17:00 102.7 F H 133 H 146/84 H 97 12/13/19 16:00 104.1 F H 23 H 146/83 H 98 12/13/19 14:59 101.7 F H 132 H 19 142/84 H 98 12/13/19 14:00 99.4 F 119 H 24 H 154/116 H 99 12/13/19 13:00 103.0 F H 109 H 28 H 143/85 H 99 12/13/19 12:00 103.4 F H 18 160/93 H 97 12/13/19 11:00 18 122/77 96 12/13/19 10:00 92 16 117/69 95 Pulse Ox 12/13/19 21:00 12/13/19 20:43 98 12/13/19 20:00 12/13/19 19:00 12/13/19 18:00 12/13/19 17:00 12/13/19 16:00 12/13/19 14:59 12/13/19 14:00 12/13/19 13:00 12/13/19 12:00 12/13/19 11:00 12/13/19 10:00 Date Exam was Performed: 12/14/19 Time Exam was Performed: 20:21 - Problem List & Annotations (1) Suicide attempt by drug ingestion SNOMED Code(s): 91081758, 00809673 Code(s): T50.902A - POISONING BY UNSP DRUG/MEDS/BIOL SUBST, SELF-HARM, INIT Status: Acute Current Visit: Yes (2) Hypotension due to drugs Status: Acute Current Visit: Yes (3) Hypoxia SNOMED Code(s): 356867231 Code(s): R09.02 - HYPOXEMIA Status: Acute Current Visit: Yes (4) Intentional acetaminophen overdose SNOMED Code(s): 508564832 Code(s): T39.1X2A - POISONING BY 4-AMINOPHENOL DERIVATIVES, SELF-HARM, INIT Status: Acute Current Visit: Yes Qualifiers: Encounter type: initial encounter Qualified Code(s): T39.1X2A - Poisoning by 4-Aminophenol derivatives, intentional self-harm, initial encounter (5) Hyperglycemia SNOMED Code(s): 52926532 Code(s): R73.9 - HYPERGLYCEMIA, UNSPECIFIED Status: Acute Current Visit: Yes (6) Polysubstance abuse SNOMED Code(s): 113002939 Code(s): F19.10 - OTHER PSYCHOACTIVE SUBSTANCE ABUSE, UNCOMPLICATED Status : Acute Current Visit: Yes (7) Acute kidney injury SNOMED Code(s): 74720143, 00685581 Code(s): N17.9 - ACUTE KIDNEY FAILURE, UNSPECIFIED Status: Acute Current Visit: Yes (8) Calcium oxalate crystals in urine SNOMED Code(s): 371309751 Code(s): R82.998 - OTHER ABNORMAL FINDINGS IN URINE Status: Acute Current Visit: Yes - Problem List Review Problem List Initiated/Reviewed/Updated: Yes - Plan Plan:: Suicide attempt by drug ingestion Hypotension and hypoxemia due to medication overdose Acetaminophen toxicity Calcium oxalate crystals in urine in the setting of unknown amount of medications Acute kidney injury Polysubstance abuse (methamphetamines, opiates and oxycodone) Alert and responsive upon arrival to the ED --> decline in mental status --> intubated for airway protection BP dropped, non-responsive to IVF --> started on norepinephrine Elevated Tylenol level --> poison control contacted and recommended + NAC infusion--> 16 hour portion today Posion control recommended sedation with BDS--> requirin high doses of Versed and Propofol for sedation PLAN BY SYSTEMS Neurologic: Continue sedation with Versed and Propofol for now and taper down as tolerated. Goal RASS -4 to 0. Sedation vacation today Continue seizure precautions Minimize central acting medications as possible. Pulmonary: Continue mechanical ventilation with SBT today Endotracheal tube care by RT. Regular suctioning. Aspiration precautions. ABGs now Cardiovascular: Continue norepinephrine, taper down with MAP goal >65 CVP Monitoring. Continue norepinephrine, goal MAP above 65, taper down as tolerated IVF with LR at 250ml/hr Kidney and electrolytes: Monique catheter for output monitoring. Goal urine output >40ml/hr Repeat BMP in PM with Mg and PO4. Strict monitoring of intake, output and overall fluid balance. Maintain neutral as possible. Avoid nephrotoxic medications. Monitor electrolytes and replace as needed. Trend creatinine and BUN. GI, Liver and nutrition: Continue N-acetyl cysteine 21 hour infusion protocol. Repeat Tylenol level, CMP as well as PT/INR in PM Follow up with poison control OG tube care by nursing staff. Start enteral nutrition today Endocrine: Scheduled Accu-checks every 6 hours while NPO Hypoglycemia protocol in place. Infectious disease: Trend temperature. Panculture if febrile. No need for antibiotic therapy for now Hematology and coagulation: Monitor for signs of active bleeding. Repeat PT/INR at PM. No active bleeding, no coagulopathy to correct, no need to transfuse blood products at the moment. Goal Hb >7g/dL Musculoskeletal and skin: Bed turn rotation by nursing staff. Daily evaluation for pressure ulcers. Psychiatric: Pending records from [place] Obtain controlled substance monitoring program record for patient Psychiatry consult once appropriate Monitor for drug toxicities as per primary problem. PROPHYLAXIS: DVT- SCDs due to risk of coagulopathy secondary to Tylenol overdose GI- Pantoprazole CODE STATUS: FULL CODE DISPOSITION: Patient will remain admitted in the ICU for mechanical ventilation and monitorization of drug toxicities. Will do spontaneous breathing trial today He will need to transition to inpatient psychiatry once medically stable.
--- NOTE | 2019-12-13 21:43 | PCM.PRNOTE ---
- Free Text/Narrative Note: ARTERIAL LINE PLACEMENT Date: 12/13/19 Time: 18:00 Indication: Hemodynamic monitoring Attending: Margot Singer MD A time-out was completed verifying correct patient, procedure, site, positioning , and special equipment if applicable. Allens test was performed to ensure adequate perfusion. The patients right wrist was prepped and draped in sterile fashion. 1% Lidocaine was used to anesthetize the area. A 20G Arrow arterial line was introduced into the radial artery. The catheter was threaded over the guide wire and the needle was removed with appropriate pulsatile blood return. The catheter was then sutured in place to the skin and a sterile dressing applied. Perfusion to the extremity distal to the point of catheter insertion was checked and found to be adequate. Estimated Blood Loss: 5mL The patient tolerated the procedure well and there were no complications.
--- NOTE | 2019-12-13 21:43 | PCM.SN ---
- Free Text/Narrative Note: INTERVAL HISTORY Patient was placed on sedation vacation and spontaneous breathing trial was performed, he passed SBT and was extubated. Was stable throughout the day and in to the afternoon. Around 1700 patient's temperature began to increased peaking at 104.6, HR 140s, MAP >110 Poison control was contacted and they recommended external cooling and if no improvement re-intubate with sedation and paralyzation Temperature continued to increase and VS continued to worsen Decision was made to re-intubate Timeline 17:03- patient temp 39.[address] Singer at bedside. meds given per dr. Singer 1714- 40 mg IVP of etomidate given followed by a saline flush 1715-200 mg IVP of succinylcholine given followed by saline flush. 1715- patient intubated with a 8.[address] Singer. + color change, bilateral breath sounds heard measures 27 at the teeth. 1720- propofol drip started at 50 mcg/kg/min and succinylcholine drip started at 2 mg/min 1728- versed drip started at 20 mg/hr 1735- poison control contacted for sedation help 1744- succinylcholine drip stopped per poison control request 1753 LR bag complete, another bag of LR grabbed from the freezer and started. 1800- Dr Singer attempting an arterial line.
--- NOTE | 2019-12-13 21:43 | PCM.PRNOTE ---
- Free Text/Narrative Note: Endotracheal Intubation Date: 12/13/19 Time: 17:15 Indication: Airway protection due to requirement for paralization and sedation for sympathicomimetic crisis Attending: Margot Singer MD A time-out was completed verifying correct patient, procedure, site, positioning , and special equipment if applicable. The patient was placed in a flat position. Sedation was obtained using Succinylcholine 200mg, and additionally with Etomidate 40mg. The patient was easily ventilated using an ambu bag. The MAC 4 BLADE was used and inserted into the oropharynx at which time there was a Grade 1 view of the vocal cords. A 8-arabic endotracheal tube was inserted and visualized going through the vocal cords. The stylette was removed. Colorimetric change was visualized on the CO2 meter. Breath sounds were heard in both lung damon equally. The endotracheal tube was placed at 27 cm, measured at the teeth. A chest x-ray was ordered to assess for pneumothorax and verify endotrachealtube placement. Estimated Blood Loss: none The patient tolerated the procedure well and there were no complications.
[2019-12-13] MEDS: Pantoprazole 40 MG Vial IVPUSH SCH (22:48)
[2019-12-14] MEDS: propofoL 100 ML IV SCH ×6 (00:11→23:14)
[2019-12-14] MEDS: Midazolam 50 MG in Sodium Chloride 0.9% 40 ML IV SCH ×6 (00:58→14:38)
[2019-12-14] MEDS: Vecuronium 10 MG in Sodium Chloride 0.9% 100 ML IV SCH ×4 (01:30→07:48)
[2019-12-14] MEDS: Lactated Ringers 1,000 ML IV SCH ×4 (01:54→22:05)
[2019-12-14] MEDS: Potassium Chloride 10 MEQ in Premix Bag 1 BAG IV SCH ×6 (02:21→07:28)
[2019-12-14] MEDS: fentaNYL 2,500 MCG in Sodium Chloride 0.9% 200 ML IV SCH ×2 (02:23→11:06)
[2019-12-14] MEDS: Pantoprazole 40 MG Vial IVPUSH SCH (08:51)
[2019-12-14] MEDS ORDERED: Sodium Chloride 0.9% 500 ML ONE (08:54)
[2019-12-14] MEDS: Norepinephrine 4 MG in Dextrose 5% in Water 246 ML IV SCH ×2 (11:06)
[2019-12-14] MEDS: HYDROmorphone 1 MG/ML Syringe IVPUSH SCH ×11 (13:36→23:11)
--- NOTE | 2019-12-14 14:29 | PCM.PN ---
- General Info Date of Service: 12/14/19 Subjective Update: INTERVAL HISTORY AND OVERNIGHT EVENTS Drips - Propofol 45 - Versed 20 - Norepinephrine 3 - Vecuronium 1 - Fentanyl 20 - LR 150 VS trend - MAP: 76-95 - HR: 58-126 - Tmax: 104.7 I/O - Urine output: 4,065 - Balance: -2,360 - OG tube output: 230 Labs - K 2.9 - Tylenol level negative - Patient Data Vitals - Most Recent: Last Vital Signs Temp 96.8 F L 12/14/19 14:00 Pulse 117 H 12/13/19 18:00 Resp 16 12/14/19 14:00 BP 119/60 12/14/19 14:00 Pulse Ox 100 12/14/19 14:00 Weight - Most Recent: 82.599 kg I&O - Last 24 Hours: Intake & Output 12/13/19 12/14/19 12/14/19 22:59 06:59 14:59 Intake Total 2206 2697 Output Total 3320 510 1175 Balance -1114 2187 -1175 Lab Results Last 24 Hours: Laboratory Results - last 24 hr 12/13/19 12/13/19 12/13/19 Range/Units 16:49 16:49 16:56 PT 11.8 (9.7-12.0) SECONDS INR 1.09 Puncture Site ABG pH (7.35-7.45) ABG pCO2 (35.0-45.0) mmHg ABG pO2 (80.0-100.0) mmHg ABG HCO3 (22.0-26.0) meq/L ABG O2 Saturation (96.0-97.0) % ABG Base Excess (-2-2.0) Javier Test A-a Gradient mmHg O2 Delivery Device FiO2 (21.00-100.00) % Tidal Volume cc PEEP cmH20 Pressure Support cmH2O Sodium (136-145) mEq/L Potassium (3.5-5.1) mEq/L Chloride (98-107) mEq/L Carbon Dioxide (21-32) mEq/L Anion Gap (5-15) BUN (7-18) mg/dL Creatinine (0.7-1.3) mg/dL Est Cr Clr Drug Dosing mL/min Estimated GFR (MDRD) (>60) mL/min BUN/Creatinine Ratio (14-18) Glucose (74-106) mg/dL POC Glucose (70-105) mg/dL Calcium (8.5-10.1) mg/dL Phosphorus (2.6-4.7) mg/dL Magnesium (1.8-2.4) mg/dl Total Bilirubin (0.2-1.0) mg/dL AST (15-37) U/L ALT (16-63) U/L Alkaline Phosphatase (46-116) U/L Total Protein (6.4-8.2) g/dl Albumin (3.4-5.0) g/dl Globulin gm/dL Albumin/Globulin Ratio (1-2) Urine Color Light yellow (Yellow) Urine Appearance Clear (Clear) Urine pH 6.5 (5.0-8.0) Ur Specific [place] 1.015 (1.005-1.030) Urine Protein Negative (Negative) Urine Glucose (UA) Negative (Negative) Urine Ketones Negative (Negative) Urine Occult Blood Negative (Negative) Urine Nitrite Negative (Negative) Urine Bilirubin Negative (Negative) Urine Urobilinogen 0.2 (0.2-1.0) Ur Leukocyte Esterase Negative (Negative) Urine RBC 0-5 (0-5) /hpf Urine WBC 0-5 (0-5) /hpf Ur Squamous Epith Cells 0-5 (0-5) /hpf Urine Bacteria Few (FEW) /hpf Urine Mucus Few (FEW) /hpf Ur Random Creatinine 17.5 L (30.0-125.0) mg/dL U Random Total Protein < 6.0 (0.0-11.8) mg/dL Ur Random Sodium 52 (40-220) mEq/L Acetaminophen (10-30) ug/mL 12/13/19 12/13/19 12/13/19 Range/Units 16:56 16:56 20:13 PT (9.7-12.0) SECONDS INR Puncture Site ABG pH (7.35-7.45) ABG pCO2 (35.0-45.0) mmHg ABG pO2 (80.0-100.0) mmHg ABG HCO3 (22.0-26.0) meq/L ABG O2 Saturation (96.0-97.0) % ABG Base Excess (-2-2.0) Javier Test A-a Gradient mmHg O2 Delivery Device FiO2 (21.00-100.00) % Tidal Volume cc PEEP cmH20 Pressure Support cmH2O Sodium 142 143 (136-145) mEq/L Potassium 3.8 3.3 L (3.5-5.1) mEq/L Chloride 103 106 (98-107) mEq/L Carbon Dioxide 27 27 (21-32) mEq/L Anion Gap 15.8 H 13.3 (5-15) BUN 8 7 (7-18) mg/dL Creatinine 1.3 1.0 (0.7-1.3) mg/dL Est Cr Clr Drug Dosing 79.65 103.55 mL/min Estimated GFR (MDRD) > 60 > 60 (>60) mL/min BUN/Creatinine Ratio 6.2 L 7.0 L (14-18) Glucose 120 H 148 H (74-106) mg/dL POC Glucose (70-105) mg/dL Calcium 8.5 8.0 L (8.5-10.1) mg/dL Phosphorus 3.5 4.1 (2.6-4.7) mg/dL Magnesium 1.9 1.9 (1.8-2.4) mg/dl Total Bilirubin 0.6 (0.2-1.0) mg/dL AST 15 (15-37) U/L ALT 46 (16-63) U/L Alkaline Phosphatase 74 (46-116) U/L Total Protein 6.5 (6.4-8.2) g/dl Albumin 2.9 L (3.4-5.0) g/dl Globulin 3.6 gm/dL Albumin/Globulin Ratio 0.8 L (1-2) Urine Color (Yellow) Urine Appearance (Clear) Urine pH (5.0-8.0) Ur Specific [place] (1.005-1.030) Urine Protein (Negative) Urine Glucose (UA) (Negative) Urine Ketones (Negative) Urine Occult Blood (Negative) Urine Nitrite (Negative) Urine Bilirubin (Negative) Urine Urobilinogen (0.2-1.0) Ur Leukocyte Esterase (Negative) Urine RBC (0-5) /hpf Urine WBC (0-5) /hpf Ur Squamous Epith Cells (0-5) /hpf Urine Bacteria (FEW) /hpf Urine Mucus (FEW) /hpf Ur Random Creatinine (30.0-125.0) mg/dL U Random Total Protein (0.0-11.8) mg/dL Ur Random Sodium (40-220) mEq/L Acetaminophen 0 L (10-30) ug/mL 12/13/19 12/13/19 12/14/19 Range/Units 20:35 23:45 00:05 PT (9.7-12.0) SECONDS INR Puncture Site Art line ABG pH 7.47 H (7.35-7.45) ABG pCO2 36.6 (35.0-45.0) mmHg ABG pO2 87.0 (80.0-100.0) mmHg ABG HCO3 26.6 H (22.0-26.0) meq/L ABG O2 Saturation 97.8 H (96.0-97.0) % ABG Base Excess 3.5 H (-2-2.0) Javier Test A-a Gradient 81 mmHg O2 Delivery Device Ventilator FiO2 30.00 (21.00-100.00) % Tidal Volume 550.0 cc PEEP 5.0 cmH20 Pressure Support cmH2O Sodium (136-145) mEq/L Potassium (3.5-5.1) mEq/L Chloride (98-107) mEq/L Carbon Dioxide (21-32) mEq/L Anion Gap (5-15) BUN (7-18) mg/dL Creatinine (0.7-1.3) mg/dL Est Cr Clr Drug Dosing mL/min Estimated GFR (MDRD) (>60) mL/min BUN/Creatinine Ratio (14-18) Glucose (74-106) mg/dL POC Glucose 113 H (70-105) mg/dL Calcium (8.5-10.1) mg/dL Phosphorus (2.6-4.7) mg/dL Magnesium (1.8-2.4) mg/dl Total Bilirubin (0.2-1.0) mg/dL AST (15-37) U/L ALT (16-63) U/L Alkaline Phosphatase (46-116) U/L Total Protein (6.4-8.2) g/dl Albumin (3.4-5.0) g/dl Globulin gm/dL Albumin/Globulin Ratio (1-2) Urine Color (Yellow) Urine Appearance (Clear) Urine pH (5.0-8.0) Ur Specific [place] (1.005-1.030) Urine Protein (Negative) Urine Glucose (UA) (Negative) Urine Ketones (Negative) Urine Occult Blood (Negative) Urine Nitrite (Negative) Urine Bilirubin (Negative) Urine Urobilinogen (0.2-1.0) Ur Leukocyte Esterase (Negative) Urine RBC (0-5) /hpf Urine WBC (0-5) /hpf Ur Squamous Epith Cells (0-5) /hpf Urine Bacteria (FEW) /hpf Urine Mucus (FEW) /hpf Ur Random Creatinine (30.0-125.0) mg/dL U Random Total Protein (0.0-11.8) mg/dL Ur Random Sodium 24 L (40-220) mEq/L Acetaminophen (10-30) ug/mL 12/14/19 12/14/19 12/14/19 Range/Units 01:00 01:24 05:00 PT (9.7-12.0) SECONDS INR Puncture Site ABG pH (7.35-7.45) ABG pCO2 (35.0-45.0) mmHg ABG pO2 (80.0-100.0) mmHg ABG HCO3 (22.0-26.0) meq/L ABG O2 Saturation (96.0-97.0) % ABG Base Excess (-2-2.0) Javier Test A-a Gradient mmHg O2 Delivery Device FiO2 (21.00-100.00) % Tidal Volume cc PEEP cmH20 Pressure Support cmH2O Sodium 145 (136-145) mEq/L Potassium 2.9 L (3.5-5.1) mEq/L Chloride 109 H (98-107) mEq/L Carbon Dioxide 27 (21-32) mEq/L Anion Gap 11.9 (5-15) BUN 8 (7-18) mg/dL Creatinine 0.9 (0.7-1.3) mg/dL Est Cr Clr Drug Dosing 115.06 mL/min Estimated GFR (MDRD) > 60 (>60) mL/min BUN/Creatinine Ratio 8.9 L (14-18) Glucose 107 H (74-106) mg/dL POC Glucose (70-105) mg/dL Calcium 8.0 L (8.5-10.1) mg/dL Phosphorus 3.3 (2.6-4.7) mg/dL Magnesium 2.1 (1.8-2.4) mg/dl Total Bilirubin (0.2-1.0) mg/dL AST (15-37) U/L ALT (16-63) U/L Alkaline Phosphatase (46-116) U/L Total Protein (6.4-8.2) g/dl Albumin (3.4-5.0) g/dl Globulin gm/dL Albumin/Globulin Ratio (1-2) Urine Color (Yellow) Urine Appearance (Clear) Urine pH (5.0-8.0) Ur Specific [place] (1.005-1.030) Urine Protein (Negative) Urine Glucose (UA) (Negative) Urine Ketones (Negative) Urine Occult Blood (Negative) Urine Nitrite (Negative) Urine Bilirubin (Negative) Urine Urobilinogen (0.2-1.0) Ur Leukocyte Esterase (Negative) Urine RBC (0-5) /hpf Urine WBC (0-5) /hpf Ur Squamous Epith Cells (0-5) /hpf Urine Bacteria (FEW) /hpf Urine Mucus (FEW) /hpf Ur Random Creatinine (30.0-125.0) mg/dL U Random Total Protein (0.0-11.8) mg/dL Ur Random Sodium 50 55 (40-220) mEq/L Acetaminophen (10-30) ug/mL 12/14/19 12/14/19 12/14/19 Range/Units 05:19 06:02 08:02 PT (9.7-12.0) SECONDS INR Puncture Site Art line ABG pH 7.51 H (7.35-7.45) ABG pCO2 29.9 L (35.0-45.0) mmHg ABG pO2 80.0 (80.0-100.0) mmHg ABG HCO3 23.6 (22.0-26.0) meq/L ABG O2 Saturation 97.6 H (96.0-97.0) % ABG Base Excess 1.8 (-2-2.0) Javier Test Positive A-a Gradient 82 mmHg O2 Delivery Device Ventilator FiO2 0.00 L (21.00-100.00) % Tidal Volume 550.0 cc PEEP 5.0 cmH20 Pressure Support 0.0 cmH2O Sodium 145 (136-145) mEq/L Potassium 3.6 (3.5-5.1) mEq/L Chloride 110 H (98-107) mEq/L Carbon Dioxide 28 (21-32) mEq/L Anion Gap 10.6 (5-15) BUN 7 (7-18) mg/dL Creatinine 0.9 (0.7-1.3) mg/dL Est Cr Clr Drug Dosing 115.06 mL/min Estimated GFR (MDRD) > 60 (>60) mL/min BUN/Creatinine Ratio 7.8 L (14-18) Glucose 87 (74-106) mg/dL POC Glucose 86 (70-105) mg/dL Calcium 8.1 L (8.5-10.1) mg/dL Phosphorus 3.6 (2.6-4.7) mg/dL Magnesium 2.0 (1.8-2.4) mg/dl Total Bilirubin (0.2-1.0) mg/dL AST (15-37) U/L ALT (16-63) U/L Alkaline Phosphatase (46-116) U/L Total Protein (6.4-8.2) g/dl Albumin (3.4-5.0) g/dl Globulin gm/dL Albumin/Globulin Ratio (1-2) Urine Color (Yellow) Urine Appearance (Clear) Urine pH (5.0-8.0) Ur Specific [place] (1.005-1.030) Urine Protein (Negative) Urine Glucose (UA) (Negative) Urine Ketones (Negative) Urine Occult Blood (Negative) Urine Nitrite (Negative) Urine Bilirubin (Negative) Urine Urobilinogen (0.2-1.0) Ur Leukocyte Esterase (Negative) Urine RBC (0-5) /hpf Urine WBC (0-5) /hpf Ur Squamous Epith Cells (0-5) /hpf Urine Bacteria (FEW) /hpf Urine Mucus (FEW) /hpf Ur Random Creatinine (30.0-125.0) mg/dL U Random Total Protein (0.0-11.8) mg/dL Ur Random Sodium (40-220) mEq/L Acetaminophen (10-30) ug/mL 12/14/19 12/14/19 Range/Units 10:44 11:43 PT (9.7-12.0) SECONDS INR Puncture Site art line ABG pH 7.47 H (7.35-7.45) ABG pCO2 33.2 L (35.0-45.0) mmHg ABG pO2 80.0 (80.0-100.0) mmHg ABG HCO3 23.9 (22.0-26.0) meq/L ABG O2 Saturation 97.2 H (96.0-97.0) % ABG Base Excess 1.3 (-2-2.0) Javier Test Positive A-a Gradient 78 mmHg O2 Delivery Device Ventilator FiO2 0.00 L (21.00-100.00) % Tidal Volume 550.0 cc PEEP 5.0 cmH20 Pressure Support cmH2O Sodium (136-145) mEq/L Potassium (3.5-5.1) mEq/L Chloride (98-107) mEq/L Carbon Dioxide (21-32) mEq/L Anion Gap (5-15) BUN (7-18) mg/dL Creatinine (0.7-1.3) mg/dL Est Cr Clr Drug Dosing mL/min Estimated GFR (MDRD) (>60) mL/min BUN/Creatinine Ratio (14-18) Glucose (74-106) mg/dL POC Glucose 77 (70-105) mg/dL Calcium (8.5-10.1) mg/dL Phosphorus (2.6-4.7) mg/dL Magnesium (1.8-2.4) mg/dl Total Bilirubin (0.2-1.0) mg/dL AST (15-37) U/L ALT (16-63) U/L Alkaline Phosphatase (46-116) U/L Total Protein (6.4-8.2) g/dl Albumin (3.4-5.0) g/dl Globulin gm/dL Albumin/Globulin Ratio (1-2) Urine Color (Yellow) Urine Appearance (Clear) Urine pH (5.0-8.0) Ur Specific [place] (1.005-1.030) Urine Protein (Negative) Urine Glucose (UA) (Negative) Urine Ketones (Negative) Urine Occult Blood (Negative) Urine Nitrite (Negative) Urine Bilirubin (Negative) Urine Urobilinogen (0.2-1.0) Ur Leukocyte Esterase (Negative) Urine RBC (0-5) /hpf Urine WBC (0-5) /hpf Ur Squamous Epith Cells (0-5) /hpf Urine Bacteria (FEW) /hpf Urine Mucus (FEW) /hpf Ur Random Creatinine (30.0-125.0) mg/dL U Random Total Protein (0.0-11.8) mg/dL Ur Random Sodium (40-220) mEq/L Acetaminophen (10-30) ug/mL Med Orders - Current: Current Medications Dextrose/Water (Dextrose 50% In Water) 50 ml IVPUSH ASDIRECTED PRN PRN Reason: Hypoglycemia Hydromorphone HCl (Dilaudid) 1 mg IVPUSH Q1H BRIANNA Last Admin: 12/14/19 13:36 Dose: 1 mg Norepinephrine Bitartrate 4 mg (/ Dextrose/Water) 250 mls @ 15 mls/hr IV TITRATE BRIANNA; Protocol Last Titration: 12/14/19 13:22 Dose: 1 mcg/min, 3.75 mls/hr Midazolam HCl 50 mg/ Sodium (Chloride) 50 mls @ 0.5 mls/hr IV TITRATE BRIANNA; Protocol Last Admin: 12/14/19 11:38 Dose: 20 mg/hr, 20 mls/hr Lactated Ringer's (Ringers, Lactated) 1,000 mls @ 150 mls/hr IV ASDIRECTED BRIANNA Last Admin: 12/14/19 08:55 Dose: 150 mls/hr Propofol (Diprivan 100 Ml) 100 mls @ 9.879 mls/hr IV TITRATE BRIANNA; Protocol Last Titration: 12/14/19 11:32 Dose: 40 mcg/kg/min, 19.758 mls/hr Fentanyl 2,500 mcg/ Sodium (Chloride) 250 mls @ 5 mls/hr IV TITRATE BRIANNA; Protocol Last Admin: 12/14/19 11:06 Dose: 200 mcg/hr, 20 mls/hr Vecuronium [place] 10 mg/ (Sodium Chloride) 100 mls @ 39.64 mls/hr IV ASDIRECTED BRIANNA; Protocol Last Titration: 12/14/19 08:06 Dose: 0 mcg/kg/min, 0 mls/hr Lorazepam (Ativan) 2 mg IVPUSH Q5M PRN PRN Reason: SEE LABEL COMMENTS Last Admin: 12/13/19 17:05 Dose: 2 mg Pantoprazole Sodium (Protonix Iv) 40 mg IVPUSH DAILY BRIANNA Last Admin: 12/14/19 08:51 Dose: 40 mg Discontinued Medications Etomidate (Amidate) 25 mg IVPUSH ONETIME ONE Stop: 12/12/19 13:51 Last Admin: 12/12/19 13:50 Dose: 25 mg Etomidate (Amidate) 40 mg IVPUSH .STK-MED ONE Stop: 12/12/19 16:01 Etomidate (Amidate) 40 mg IVPUSH ONETIME ONE Stop: 12/13/19 18:05 Last Admin: 12/13/19 17:14 Dose: 40 mg Dextrose/Sodium Chloride (Dextrose 5%-Normal Saline) 1,000 mls @ 999 mls/hr IV ASDIRECTED BRIANNA Last Admin: 12/12/19 12:44 Dose: 999 mls/hr Sodium Chloride (Normal Saline) 1,000 mls @ 1,000 mls/hr IV ONETIME ONE Stop: 12/12/19 14:59 Last Admin: 12/12/19 14:00 Dose: 1,000 mls/hr Sodium Chloride (Normal Saline) Confirm Administered Dose 1,000 mls @ as directed .ROUTE .STK-MED ONE Stop: 12/12/19 13:57 Last Admin: 12/12/19 14:01 Dose: Not Given Propofol (Diprivan 50 Ml) 50 mls @ 2.449 mls/hr IV TITRATE BRIANNA; Protocol Last Titration: 12/12/19 20:17 Dose: 5 mcg/kg/min, 2.449 mls/hr Lactated Ringer's (Ringers, Lactated) 1,000 mls @ 999 mls/hr IV .BOLUS ONE Stop: 12/12/19 17:02 Last Admin: 12/12/19 16:07 Dose: 999 mls/hr Lactated Ringer's (Ringers, Lactated) Confirm Administered Dose 1,000 mls @ as directed .ROUTE .STK-MED ONE Stop: 12/12/19 16:01 Last Admin: 12/12/19 16:06 Dose: Not Given Acetylcysteine 12,300 mg/ (Dextrose/Water) 261.5 mls @ 261.5 mls/hr IV ONETIME ONE Stop: 12/12/19 17:29 Last Admin: 12/12/19 17:18 Dose: 261.5 mls/hr Propofol (Diprivan 100 Ml) Confirm Administered Dose 100 mls @ as directed .ROUTE .STK-MED ONE Stop: 12/12/19 22:13 Last Admin: 12/12/19 23:02 Dose: Not Given Acetylcysteine 4,000 mg/ (Dextrose/Water) 520 mls @ 130 mls/hr IV ONETIME ONE Stop: 12/13/19 02:59 Last Admin: 12/12/19 23:26 Dose: 130 mls/hr Acetylcysteine 8,100 mg/ (Dextrose/Water) 1,040.5 mls @ 65.031 mls/hr IV ONETIME ONE Stop: 12/13/19 18:59 Last Admin: 12/13/19 03:24 Dose: 65.031 mls/hr Magnesium Sulfate 2 gm/ Premix 50 mls @ 25 mls/hr IV ONETIME ONE Stop: 12/13/19 03:04 Last Admin: 12/13/19 01:42 Dose: 25 mls/hr Potassium Chloride 10 meq/ (Premix) 100 mls @ 100 mls/hr IV Q1H BRIANNA Stop: 12/13/19 05:14 Last Admin: 12/13/19 04:46 Dose: 100 mls/hr Potassium Phosphate 30 mmole/ (Sodium Chloride) 510 mls @ 102 mls/hr IV ONETIME ONE Stop: 12/13/19 18:59 Last Admin: 12/13/19 13:47 Dose: 102 mls/hr Sodium Chloride (Normal Saline) Confirm Administered Dose 1,000 mls @ as directed .ROUTE .STK-MED ONE Stop: 12/13/19 16:38 Last Admin: 12/13/19 16:53 Dose: Not Given Lactated Ringer's (Ringers, Lactated) 1,000 mls @ 999 mls/hr IV .BOLUS ONE Stop: 12/13/19 17:56 Last Admin: 12/13/19 17:01 Dose: 999 mls/hr Succinylcholine Chloride 200 (mg/ Sodium Chloride) 210 mls @ 30 mls/hr IV TITRATE BRIANNA Last Admin: 12/13/19 17:28 Dose: 30 mls/hr Sodium Chloride (Normal Saline) Confirm Administered Dose 1,000 mls @ as directed .ROUTE .STK-MED ONE Stop: 12/13/19 17:39 Last Admin: 12/13/19 18:18 Dose: Not Given Vecuronium [place] 100 mg/ (Sodium Chloride) 100 mls @ 4.95 mls/hr IV ASDIRECTED BRIANNA; Protocol Sodium Chloride (Normal Saline) Confirm Administered Dose 100 mls @ as directed .ROUTE .STK-MED ONE Stop: 12/13/19 21:04 Last Admin: 02/20/20 21:36 Dose: 1 mls/hr Sodium Chloride (Normal Saline) Confirm Administered Dose 100 mls @ as directed .ROUTE .STK-MED ONE Stop: 12/13/19 23:06 Last Admin: 12/13/19 23:21 Dose: 1 mls/hr Potassium Chloride 10 meq/ (Premix) 100 mls @ 100 mls/hr IV Q1H BRIANNA Stop: 12/14/19 08:29 Last Admin: 12/14/19 07:28 Dose: 100 mls/hr Sodium Chloride (Normal Saline) Confirm Administered Dose 500 mls @ as directed .ROUTE .STK-MED ONE Stop: 12/14/19 08:55 Last Admin: 12/14/19 09:00 Dose: Not Given Vecuronium [place] 10 mg/ (Sodium Chloride) 100 mls @ 49.55 mls/hr IV ONETIME ONE; Protocol Stop: 12/13/19 19:46 Labetalol HCl (Normodyne) 5 mg IVPUSH ONETIME ONE; Protocol Stop: 12/13/19 16:56 Last Admin: 12/13/19 17:01 Dose: 5 mg Labetalol HCl (Normodyne) 10 mg IVPUSH ONETIME ONE; Protocol Stop: 12/13/19 17:06 Last Admin: 12/13/19 17:05 Dose: 10 mg Metoclopramide HCl (Reglan) 10 mg IVPUSH ONETIME ONE Stop: 12/12/19 12:30 Last Admin: 12/12/19 12:44 Dose: 10 mg Midazolam HCl (Versed 1 Mg/Ml) 2 mg IVPUSH ONETIME ONE Stop: 12/12/19 13:50 Last Admin: 12/12/19 13:49 Dose: 2 mg Midazolam HCl (Versed 1 Mg/Ml) 5 mg .ROUTE .STK-MED ONE Stop: 12/12/19 16:01 Midazolam HCl (Versed 1 Mg/Ml) 10 mg .ROUTE .STK-MED ONE Stop: 12/13/19 17:31 Pantoprazole Sodium (Protonix Iv) 40 mg IVPUSH Q24H BRIANNA Last Admin: 12/12/19 17:19 Dose: 40 mg Succinylcholine Chloride (Quelicin) 125 mg IV ONETIME ONE Stop: 12/12/19 13:52 Last Admin: 12/12/19 13:51 Dose: 125 mg Succinylcholine Chloride (Quelicin) 200 mg .ROUTE .STK-MED ONE Stop: 12/12/19 16:01 Succinylcholine Chloride (Quelicin) 200 mg IV ONETIME ONE Stop: 12/13/19 17:01 Last Admin: 12/13/19 17:15 Dose: 200 mg Vecuronium [place] (Vecuronium) 9 mg IVPUSH ONETIME ONE Stop: 12/12/19 14:02 Last Admin: 12/12/19 14:02 Dose: 9 mg Vecuronium [place] (Vecuronium) 10 mg .ROUTE .STK-MED ONE Stop: 12/12/19 16:01 Vecuronium [place] (Vecuronium) Confirm Administered Dose 10 mg .ROUTE .STK-MED ONE Stop: 12/13/19 20:59 Last Admin: 12/14/19 11:04 Dose: Not Given Vecuronium [place] (Vecuronium) Confirm Administered Dose 10 mg .ROUTE .STK-MED ONE Stop: 12/13/19 23:02 Last Admin: 12/14/19 11:05 Dose: Not Given Sepsis Event Note - Evaluation Sepsis Screening Result: No Definite Risk - Focused Exam Vital Signs: Vital Signs Temp Resp BP BP Pulse Ox Pulse Ox 12/14/19 14:00 96.8 F L 16 119/60 100 12/14/19 13:22 98 12/14/19 13:21 97.3 F 16 139/66 100 12/14/19 13:00 97.3 F 15 141/71 H 100 12/14/19 11:59 99.0 F 17 134/90 100 12/14/19 11:40 99.3 F 17 135/76 100 12/14/19 11:00 99.7 F 17 111/72 100 12/14/19 10:39 99 12/14/19 10:00 99.9 F 16 112/58 L 99 12/14/19 09:54 99.7 F 16 71/42 L 100 12/14/19 08:52 99.3 F 16 110/50 L 100 12/14/19 08:00 99.0 F 17 120/57 L 100 12/14/19 06:49 98.6 F 17 101/55 L 117/55 L 100 12/14/19 05:56 98.4 F 17 104/60 112/50 L 100 12/14/19 05:00 98.1 F 17 115/51 L 101/54 L 100 12/14/19 04:25 16 100 12/14/19 04:00 97.9 F 16 105/64 125/56 L 100 12/14/19 03:00 97.5 F 17 113/63 122/59 L 100 12/14/19 02:15 17 100 Date Exam was Performed: 12/17/19 Time Exam was Performed: 14:27 - Problem List & Annotations (1) Suicide attempt by drug ingestion SNOMED Code(s): 86386957, 89354325 Code(s): T50.902A - POISONING BY UNSP DRUG/MEDS/BIOL SUBST, SELF-HARM, INIT Status: Acute (2) Hypotension due to drugs Status: Acute (3) Hypoxia SNOMED Code(s): 975799738 Code(s): R09.02 - HYPOXEMIA Status: Acute (4) Intentional acetaminophen overdose SNOMED Code(s): 800463529 Code(s): T39.1X2A - POISONING BY 4-AMINOPHENOL DERIVATIVES, SELF-HARM, INIT Status: Acute Qualifiers: Encounter type: initial encounter Qualified Code(s): T39.1X2A - Poisoning by 4-Aminophenol derivatives, intentional self-harm, initial encounter (5) Hyperglycemia SNOMED Code(s): 01826483 Code(s): R73.9 - HYPERGLYCEMIA, UNSPECIFIED Status: Acute (6) Polysubstance abuse SNOMED Code(s): 940513863 Code(s): F19.10 - OTHER PSYCHOACTIVE SUBSTANCE ABUSE, UNCOMPLICATED Status : Acute (7) Acute kidney injury SNOMED Code(s): 95091878, 49615572 Code(s): N17.9 - ACUTE KIDNEY FAILURE, UNSPECIFIED Status: Acute (8) Calcium oxalate crystals in urine SNOMED Code(s): 224085471 Code(s): R82.998 - OTHER ABNORMAL FINDINGS IN URINE Status: Acute - My Orders Last 24 Hours: My Active Orders 12/13/19 16:35 LORazepam [Ativan] 2 mg IVPUSH Q5M PRN 12/13/19 16:49 CHLORIDE, URINE Stat POTASSIUM, URINE Stat 12/13/19 18:30 fentaNYL [Sublimaze] 2,500 mcg Sodium Chloride 0.9% [Normal Saline] 200 ml IV TITRATE 12/13/19 18:35 Communication Order [RC] STAT 12/13/19 21:00 Vecuronium 10 mg Sodium Chloride 0.9% [Normal Saline] 100 ml IV ASDIRECTED 12/13/19 21:45 Pantoprazole [ProTONIX IV] 40 mg IVPUSH DAILY 12/14/19 13:15 HYDROmorphone [Dilaudid] 1 mg IVPUSH Q1H 12/14/19 Lunch NPO Now [Nothing per Oral Now Diet] [DIET] - Plan Plan:: Suicide attempt by drug ingestion Hypotension and hypoxemia due to medication overdose Acetaminophen toxicity Calcium oxalate crystals in urine in the setting of unknown amount of medications Acute kidney injury Polysubstance abuse (methamphetamines, opiates and oxycodone) Alert and responsive upon arrival to the ED --> decline in mental status --> intubated for airway protection BP dropped, non-responsive to IVF --> started on norepinephrine Elevated Tylenol level --> poison control contacted and recommended + NAC infusion--> 16 hour portion today Posion control recommended sedation with BDS--> requirin high doses of Versed and Propofol for sedation PLAN BY SYSTEMS Neurologic: Continue sedation with Versed and Propofol for now and taper down as tolerated. Goal RASS -4 to 0. Sedation vacation today Continue seizure precautions Minimize central acting medications as possible. Pulmonary: Continue mechanical ventilation with SBT today Endotracheal tube care by RT. Regular suctioning. Aspiration precautions. ABGs now Cardiovascular: Continue norepinephrine, taper down with MAP goal >65 CVP Monitoring. Continue norepinephrine, goal MAP above 65, taper down as tolerated IVF with LR at 250ml/hr Kidney and electrolytes: Monique catheter for output monitoring. Goal urine output >40ml/hr Repeat BMP in PM with Mg and PO4. Strict monitoring of intake, output and overall fluid balance. Maintain neutral as possible. Avoid nephrotoxic medications. Monitor electrolytes and replace as needed. Trend creatinine and BUN. GI, Liver and nutrition: Continue N-acetyl cysteine 21 hour infusion protocol. Repeat Tylenol level, CMP as well as PT/INR in PM Follow up with poison control OG tube care by nursing staff. Start enteral nutrition today Endocrine: Scheduled Accu-checks every 6 hours while NPO Hypoglycemia protocol in place. Infectious disease: Trend temperature. Panculture if febrile. No need for antibiotic therapy for now Hematology and coagulation: Monitor for signs of active bleeding. Repeat PT/INR at PM. No active bleeding, no coagulopathy to correct, no need to transfuse blood products at the moment. Goal Hb >7g/dL Musculoskeletal and skin: Bed turn rotation by nursing staff. Daily evaluation for pressure ulcers. Psychiatric: Pending records from [place] Obtain controlled substance monitoring program record for patient Psychiatry consult once appropriate Monitor for drug toxicities as per primary problem. PROPHYLAXIS: DVT- SCDs due to risk of coagulopathy secondary to Tylenol overdose GI- Pantoprazole CODE STATUS: FULL CODE DISPOSITION: Patient will remain admitted in the ICU for mechanical ventilation and monitorization of drug toxicities. Will do spontaneous breathing trial today He will need to transition to inpatient psychiatry once medically stable.
[2019-12-15] MEDS: HYDROmorphone 1 MG/ML Syringe IVPUSH SCH ×18 (00:55→23:01)
[2019-12-15] MEDS: Lactated Ringers 1,000 ML IV SCH ×4 (04:41→23:33)
[2019-12-15] MEDS: propofoL 100 ML IV SCH ×5 (04:42→21:36)
[2019-12-15] MEDS: Pantoprazole 40 MG Vial IVPUSH SCH (08:13)
--- NOTE | 2019-12-15 11:12 | CR ---
Chest: Portable semi-upright view of the chest was obtained. Comparison: Prior chest x-ray of 12/13/19. Haziness is noted within both lung bases suspicious for pleural effusions. Heart appears more prominent on current exam and difficult to exclude development of cardiomegaly or pericardial effusion. Endotracheal tube is seen with tip lying within the proximal right mainstem bronchus which should be withdrawn by about 3 cm. Impression: 1. Endotracheal tube within the right mainstem bronchus and should be withdrawn by about 3 cm. 2. Increased density within both lung bases as an interval change from prior study and difficult to exclude bilateral pleural effusions. 3. Slight increased heart size from prior exam with differential including pericardial effusion versus development of cardiomegaly. Diagnostic code #5 Study was dictated in [place] Standard Time
[2019-12-15] MEDS: HYDROmorphone 0.5 MG/0.5 ML Syringe IVPUSH SCH ×2 (13:12→15:27)
--- NOTE | 2019-12-15 15:04 | CR ---
Chest: Portable view of the chest was obtained. Comparison: Previous chest x-ray performed earlier on the same day (10:26 AM). Endotracheal tube has been with drawn and no longer is within the main stem bronchus and lies about 2.5 cm above the owen. Improved aeration of both lung bases. Upper lungs are clear. Right jugular line is stable. Impression: 1. Tip of endotracheal tube 2.5 cm above the owen. 2. Better aeration of both lung bases. Diagnostic code #2 This report was dictated in [place] Standard Time
[2019-12-15] MEDS ORDERED: Ampicillin/Sulbactam Na 3 GM in Sodium Chloride 0.9% 100 ML IV SCH (17:00)
[2019-12-15] MEDS: Levofloxacin/Dextrose 5%-Water 750 MG in Premix Bag 1 BAG IV SCH (17:12)
[2019-12-15] MEDS ORDERED: Piperacillin/Tazobactam 4.5 GM in Sodium Chloride 0.9% 100 ML IV ONE (17:15)
--- NOTE | 2019-12-15 18:30 | PCM.PN ---
- General Info Date of Service: 12/15/19 Subjective Update: Drips - Propofol 40 - Versed 20 - LR 150 - Dilaudid q1h VS trend - MAP: 76-95 - HR: 58-126 - Tmax: 104.7 I/O - Urine output: 4,065 - Balance: -2,360 - OG tube output: 230 Labs - K 2.9 - Tylenol level negative - Patient Data Vitals - Most Recent: Last Vital Signs Temp 99.3 F 12/15/19 18:00 Pulse 68 12/15/19 08:06 Resp 17 12/15/19 18:00 BP 137/54 L 12/15/19 18:00 Pulse Ox 97 12/15/19 18:09 Weight - Most Recent: 89.358 kg I&O - Last 24 Hours: Intake & Output 12/15/19 12/15/19 12/15/19 06:59 14:59 22:59 Intake Total 2390 2067 Output Total 685 1625 450 Balance 1705 -1625 1617 Lab Results Last 24 Hours: Laboratory Results - last 24 hr 12/15/19 12/15/19 12/15/19 Range/Units 00:35 06:13 06:51 WBC 11.33 H (4.23-9.07) K/mm3 RBC 4.80 (4.63-6.08) M/mm3 Hgb 14.2 (13.7-17.5) gm/dl Hct 43.1 (40.1-51.0) % MCV 89.8 (79.0-92.2) fl MCH 29.6 (25.7-32.2) pg MCHC 32.9 (32.2-35.5) g/dl RDW Std Deviation 45.8 H (35.1-43.9) fL Plt Count 113 L (163-337) K/mm3 MPV 10.2 (9.4-12.3) fl Neut % (Auto) 81.7 H (34.0-67.9) % Lymph % (Auto) 9.0 L (21.8-53.1) % Sawyer % (Auto) 7.1 (5.3-12.2) % Eos % (Auto) 1.8 (0.8-7.0) Baso % (Auto) 0.2 (0.1-1.2) % Neut # (Auto) 9.27 H (1.78-5.38) K/mm3 Lymph # (Auto) 1.02 L (1.32-3.57) K/mm3 Sawyer # (Auto) 0.80 (0.30-0.82) K/mm3 Eos # (Auto) 0.20 (0.04-0.54) K/mm3 Baso # (Auto) 0.02 (0.01-0.08) K/mm3 Manual Slide Review Abnormal smear Puncture Site ABG pH (7.35-7.45) ABG pCO2 (35.0-45.0) mmHg ABG pO2 (80.0-100.0) mmHg ABG HCO3 (22.0-26.0) meq/L ABG O2 Saturation (96.0-97.0) % ABG Base Excess (-2-2.0) A-a Gradient mmHg O2 Delivery Device Oxygen Flow Rate FiO2 (21.00-100.00) % Tidal Volume cc PEEP cmH20 Sodium (136-145) mEq/L Potassium (3.5-5.1) mEq/L Chloride (98-107) mEq/L Carbon Dioxide (21-32) mEq/L Anion Gap (5-15) BUN (7-18) mg/dL Creatinine (0.7-1.3) mg/dL Est Cr Clr Drug Dosing mL/min Estimated GFR (MDRD) (>60) mL/min BUN/Creatinine Ratio (14-18) Glucose (74-106) mg/dL POC Glucose 102 109 H (70-105) mg/dL Lactic Acid (0.4-2.0) mmol/L Calcium (8.5-10.1) mg/dL Phosphorus (2.6-4.7) mg/dL Magnesium (1.8-2.4) mg/dl 12/15/19 12/15/19 12/15/19 Range/Units 06:51 12:41 13:11 WBC (4.23-9.07) K/mm3 RBC (4.63-6.08) M/mm3 Hgb (13.7-17.5) gm/dl Hct (40.1-51.0) % MCV (79.0-92.2) fl MCH (25.7-32.2) pg MCHC (32.2-35.5) g/dl RDW Std Deviation (35.1-43.9) fL Plt Count (163-337) K/mm3 MPV (9.4-12.3) fl Neut % (Auto) (34.0-67.9) % Lymph % (Auto) (21.8-53.1) % Sawyer % (Auto) (5.3-12.2) % Eos % (Auto) (0.8-7.0) Baso % (Auto) (0.1-1.2) % Neut # (Auto) (1.78-5.38) K/mm3 Lymph # (Auto) (1.32-3.57) K/mm3 Sawyer # (Auto) (0.30-0.82) K/mm3 Eos # (Auto) (0.04-0.54) K/mm3 Baso # (Auto) (0.01-0.08) K/mm3 Manual Slide Review Puncture Site A-line ABG pH 7.43 (7.35-7.45) ABG pCO2 39.9 (35.0-45.0) mmHg ABG pO2 69.0 L (80.0-100.0) mmHg ABG HCO3 26.1 H (22.0-26.0) meq/L ABG O2 Saturation 94.1 L (96.0-97.0) % ABG Base Excess 2.2 H (-2-2.0) A-a Gradient 82 mmHg O2 Delivery Device Ventilator Oxygen Flow Rate 0.0 FiO2 28.00 (21.00-100.00) % Tidal Volume 550.0 cc PEEP 5.0 cmH20 Sodium 139 (136-145) mEq/L Potassium 3.8 (3.5-5.1) mEq/L Chloride 107 (98-107) mEq/L Carbon Dioxide 26 (21-32) mEq/L Anion Gap 9.8 (5-15) BUN 7 (7-18) mg/dL Creatinine 0.7 (0.7-1.3) mg/dL Est Cr Clr Drug Dosing 148.48 mL/min Estimated GFR (MDRD) > 60 (>60) mL/min BUN/Creatinine Ratio 10.0 L (14-18) Glucose 115 H (74-106) mg/dL POC Glucose 85 (70-105) mg/dL Lactic Acid (0.4-2.0) mmol/L Calcium 8.3 L (8.5-10.1) mg/dL Phosphorus 3.7 (2.6-4.7) mg/dL Magnesium 1.9 (1.8-2.4) mg/dl 12/15/19 12/15/19 Range/Units 16:52 17:18 WBC (4.23-9.07) K/mm3 RBC (4.63-6.08) M/mm3 Hgb (13.7-17.5) gm/dl Hct (40.1-51.0) % MCV (79.0-92.2) fl MCH (25.7-32.2) pg MCHC (32.2-35.5) g/dl RDW Std Deviation (35.1-43.9) fL Plt Count (163-337) K/mm3 MPV (9.4-12.3) fl Neut % (Auto) (34.0-67.9) % Lymph % (Auto) (21.8-53.1) % Sawyer % (Auto) (5.3-12.2) % Eos % (Auto) (0.8-7.0) Baso % (Auto) (0.1-1.2) % Neut # (Auto) (1.78-5.38) K/mm3 Lymph # (Auto) (1.32-3.57) K/mm3 Sawyer # (Auto) (0.30-0.82) K/mm3 Eos # (Auto) (0.04-0.54) K/mm3 Baso # (Auto) (0.01-0.08) K/mm3 Manual Slide Review Puncture Site A-line ABG pH 7.37 (7.35-7.45) ABG pCO2 46.2 H (35.0-45.0) mmHg ABG pO2 62.0 L (80.0-100.0) mmHg ABG HCO3 26.2 H (22.0-26.0) meq/L ABG O2 Saturation 91.2 L (96.0-97.0) % ABG Base Excess 1.0 (-2-2.0) A-a Gradient 166 mmHg O2 Delivery Device Ac Oxygen Flow Rate FiO2 40.00 (21.00-100.00) % Tidal Volume 550.0 cc PEEP 8.0 cmH20 Sodium (136-145) mEq/L Potassium (3.5-5.1) mEq/L Chloride (98-107) mEq/L Carbon Dioxide (21-32) mEq/L Anion Gap (5-15) BUN (7-18) mg/dL Creatinine (0.7-1.3) mg/dL Est Cr Clr Drug Dosing mL/min Estimated GFR (MDRD) (>60) mL/min BUN/Creatinine Ratio (14-18) Glucose (74-106) mg/dL POC Glucose (70-105) mg/dL Lactic Acid 1.0 (0.4-2.0) mmol/L Calcium (8.5-10.1) mg/dL Phosphorus (2.6-4.7) mg/dL Magnesium (1.8-2.4) mg/dl Med Orders - Current: Current Medications Dextrose/Water (Dextrose 50% In Water) 50 ml IVPUSH ASDIRECTED PRN PRN Reason: Hypoglycemia Hydromorphone HCl (Dilaudid) 1 mg IVPUSH Q1H BRIANNA Last Admin: 12/15/19 17:56 Dose: 1 mg Norepinephrine Bitartrate 4 mg (/ Dextrose/Water) 250 mls @ 15 mls/hr IV TITRATE BRIANNA; Protocol Last Titration: 12/14/19 18:55 Dose: 0 mcg/min, 0 mls/hr Lactated Ringer's (Ringers, Lactated) 1,000 mls @ 150 mls/hr IV ASDIRECTED BRIANNA Last Admin: 12/15/19 17:18 Dose: 150 mls/hr Propofol (Diprivan 100 Ml) 100 mls @ 9.879 mls/hr IV TITRATE BRIANNA; Protocol Last Titration: 12/15/19 16:40 Dose: 50 mcg/kg/min, 24.698 mls/hr Fentanyl 2,500 mcg/ Sodium (Chloride) 250 mls @ 5 mls/hr IV TITRATE BRIANNA; Protocol Last Titration: 12/14/19 19:15 Dose: 0 mcg/hr, 0 mls/hr Vecuronium [place] 10 mg/ (Sodium Chloride) 100 mls @ 39.64 mls/hr IV ASDIRECTED BRIANNA; Protocol Last Titration: 12/14/19 08:06 Dose: 0 mcg/kg/min, 0 mls/hr Midazolam HCl 100 mg/ Sodium (Chloride) 100 mls @ 25 mls/hr IV TITRATE [facility] Last Infusion: 12/15/19 17:10 Dose: 25 mls/hr Levofloxacin/Dextrose 750 mg/ (Premix) 150 mls @ 100 mls/hr IV Q24H [facility] Last Admin: 12/15/19 17:12 Dose: 100 mls/hr Piperacillin Sod/Tazobactam (Sod 4.5 gm/ Sodium Chloride) 100 mls @ 25 mls/hr IV Q8H BRIANNA Vancomycin HCl 1 gm/Vancomycin HCl 250 mg/ Sodium Chloride 500 mls @ 333.333 mls/hr IV Q8H [facility] Last Admin: 12/15/19 17:55 Dose: 333.333 mls/hr Lorazepam (Ativan) 2 mg IVPUSH Q5M PRN PRN Reason: SEE LABEL COMMENTS Last Admin: 12/13/19 17:05 Dose: 2 mg Pantoprazole Sodium (Protonix Iv) 40 mg IVPUSH DAILY [facility] Last Admin: 12/15/19 08:13 Dose: 40 mg Vancomycin HCl (Pharmacy To Dose - Vancomycin) 1 dose .XX ONETIME ONE Stop: 12/15/19 17:01 Discontinued Medications Etomidate (Amidate) 25 mg IVPUSH ONETIME ONE Stop: 12/12/19 13:51 Last Admin: 12/12/19 13:50 Dose: 25 mg Etomidate (Amidate) 40 mg IVPUSH .STK-MED ONE Stop: 12/12/19 16:01 Etomidate (Amidate) 40 mg IVPUSH ONETIME ONE Stop: 12/13/19 18:05 Last Admin: 12/13/19 17:14 Dose: 40 mg Heparin Sodium (Porcine) (Heparin Lock Flush 100 Units/Ml) Confirm Administered Dose 500 units .ROUTE .STK-MED ONE Stop: 12/15/19 12:29 Last Admin: 12/15/19 13:06 Dose: Not Given Heparin Sodium (Porcine) (Heparin Lock Flush 100 Units/Ml) Confirm Administered Dose 1,000 units .ROUTE .STK-MED ONE Stop: 12/15/19 12:32 Last Admin: 12/15/19 13:06 Dose: Not Given Heparin Sodium (Porcine) (Heparin Lock Flush 100 Units/Ml) 500 units FLUSH ASDIRECTED PRN PRN Reason: Other Last Admin: 12/15/19 12:45 Dose: 500 units Hydromorphone HCl (Dilaudid) 1 mg IVPUSH Q1H [facility] Last Admin: 12/15/19 08:13 Dose: 1 mg Hydromorphone HCl (Dilaudid) 1 mg IVPUSH Q2H B[facility]ANNA Stop: 12/15/19 11:16 Last Admin: 12/15/19 11:45 Dose: 1 mg Hydromorphone HCl (Dilaudid) 0.5 mg IVPUSH Q2H [facility]ANNA Stop: 12/15/19 15:16 Last Admin: 12/15/19 15:27 Dose: 0.5 mg Hydromorphone HCl (Dilaudid) 0.5 mg IVPUSH Q4H [facility] Stop: 12/15/19 23:16 Dextrose/Sodium Chloride (Dextrose 5%-Normal Saline) 1,000 mls @ 999 mls/hr IV ASDIRECTED BRIANNA Last Admin: 12/12/19 12:44 Dose: 999 mls/hr Sodium Chloride (Normal Saline) 1,000 mls @ 1,000 mls/hr IV ONETIME ONE Stop: 12/12/19 14:59 Last Admin: 12/12/19 14:00 Dose: 1,000 mls/hr Sodium Chloride (Normal Saline) Confirm Administered Dose 1,000 mls @ as directed .ROUTE .STK-MED ONE Stop: 12/12/19 13:57 Last Admin: 12/12/19 14:01 Dose: Not Given Propofol (Diprivan 50 Ml) 50 mls @ 2.449 mls/hr IV TITRATE BRIANNA; Protocol Last Titration: 12/12/19 20:17 Dose: 5 mcg/kg/min, 2.449 mls/hr Midazolam HCl 50 mg/ Sodium (Chloride) 50 mls @ 0.5 mls/hr IV TITRATE BRIANNA; Protocol Stop: 12/14/19 17:00 Last Admin: 12/14/19 14:38 Dose: 20 mg/hr, 20 mls/hr Lactated Ringer's (Ringers, Lactated) 1,000 mls @ 999 mls/hr IV .BOLUS ONE Stop: 12/12/19 17:02 Last Admin: 12/12/19 16:07 Dose: 999 mls/hr Lactated Ringer's (Ringers, Lactated) Confirm Administered Dose 1,000 mls @ as directed .ROUTE .STK-MED ONE Stop: 12/12/19 16:01 Last Admin: 12/12/19 16:06 Dose: Not Given Acetylcysteine 12,300 mg/ (Dextrose/Water) 261.5 mls @ 261.5 mls/hr IV ONETIME ONE Stop: 12/12/19 17:29 Last Admin: 12/12/19 17:18 Dose: 261.5 mls/hr Propofol (Diprivan 100 Ml) Confirm Administered Dose 100 mls @ as directed .ROUTE .STK-MED ONE Stop: 12/12/19 22:13 Last Admin: 12/12/19 23:02 Dose: Not Given Acetylcysteine 4,000 mg/ (Dextrose/Water) 520 mls @ 130 mls/hr IV ONETIME ONE Stop: 12/13/19 02:59 Last Admin: 12/12/19 23:26 Dose: 130 mls/hr Acetylcysteine 8,100 mg/ (Dextrose/Water) 1,040.5 mls @ 65.031 mls/hr IV ONETIME ONE Stop: 12/13/19 18:59 Last Admin: 12/13/19 03:24 Dose: 65.031 mls/hr Magnesium Sulfate 2 gm/ Premix 50 mls @ 25 mls/hr IV ONETIME ONE Stop: 12/13/19 03:04 Last Admin: 12/13/19 01:42 Dose: 25 mls/hr Potassium Chloride 10 meq/ (Premix) 100 mls @ 100 mls/hr IV Q1H BRIANNA Stop: 12/13/19 05:14 Last Admin: 12/13/19 04:46 Dose: 100 mls/hr Potassium Phosphate 30 mmole/ (Sodium Chloride) 510 mls @ 102 mls/hr IV ONETIME ONE Stop: 12/13/19 18:59 Last Admin: 12/13/19 13:47 Dose: 102 mls/hr Sodium Chloride (Normal Saline) Confirm Administered Dose 1,000 mls @ as directed .ROUTE .STK-MED ONE Stop: 12/13/19 16:38 Last Admin: 12/13/19 16:53 Dose: Not Given Lactated Ringer's (Ringers, Lactated) 1,000 mls @ 999 mls/hr IV .BOLUS ONE Stop: 12/13/19 17:56 Last Admin: 12/13/19 17:01 Dose: 999 mls/hr Succinylcholine Chloride 200 (mg/ Sodium Chloride) 210 mls @ 30 mls/hr IV TITRATE BRIANNA Last Admin: 12/13/19 17:28 Dose: 30 mls/hr Sodium Chloride (Normal Saline) Confirm Administered Dose 1,000 mls @ as directed .ROUTE .STK-MED ONE Stop: 12/13/19 17:39 Last Admin: 12/13/19 18:18 Dose: Not Given Vecuronium [place] 100 mg/ (Sodium Chloride) 100 mls @ 4.95 mls/hr IV ASDIRECTED [facility]; Protocol Sodium Chloride (Normal Saline) Confirm Administered Dose 100 mls @ as directed .ROUTE .STK-MED ONE Stop: 12/13/19 21:04 Last Admin: 12/13/19 21:36 Dose: 1 mls/hr Sodium Chloride (Normal Saline) Confirm Administered Dose 100 mls @ as directed .ROUTE .STK-MED ONE Stop: 12/13/19 23:06 Last Admin: 12/13/19 23:21 Dose: 1 mls/hr Potassium Chloride 10 meq/ (Premix) 100 mls @ 100 mls/hr IV Q1H [facility] Stop: 12/14/19 08:29 Last Admin: 12/14/19 07:28 Dose: 100 mls/hr Sodium Chloride (Normal Saline) Confirm Administered Dose 500 mls @ as directed .ROUTE .STK-MED ONE Stop: 12/14/19 08:55 Last Admin: 12/14/19 09:00 Dose: Not Given Vecuronium [place] 10 mg/ (Sodium Chloride) 100 mls @ 49.55 mls/hr IV ONETIME ONE; Protocol Stop: 12/13/19 19:46 Last Admin: 12/14/19 14:20 Dose: Not Given Ampicillin Sodium/Sulbactam (Sodium 3 gm/ Sodium Chloride) 100 mls @ 200 mls/ hr IV Q6H [facility] Last Admin: 12/15/19 17:34 Dose: Not Given Vancomycin HCl 500 mg/ Sodium (Chloride) 250 mls @ 166.667 mls/hr IV ONETIME ONE Stop: 12/15/19 18:31 Last Admin: 12/15/19 17:34 Dose: Not Given Piperacillin Sod/Tazobactam (Sod 4.5 gm/ Sodium Chloride) 100 mls @ 200 mls/hr IV ONETIME ONE Stop: 12/15/19 17:44 Last Admin: 12/15/19 17:19 Dose: 200 mls/hr Labetalol HCl (Normodyne) 5 mg IVPUSH ONETIME ONE; Protocol Stop: 12/13/19 16:56 Last Admin: 12/13/19 17:01 Dose: 5 mg Labetalol HCl (Normodyne) 10 mg IVPUSH ONETIME ONE; Protocol Stop: 12/13/19 17:06 Last Admin: 12/13/19 17:05 Dose: 10 mg Metoclopramide HCl (Reglan) 10 mg IVPUSH ONETIME ONE Stop: 12/12/19 12:30 Last Admin: 12/12/19 12:44 Dose: 10 mg Midazolam HCl (Versed 1 Mg/Ml) 2 mg IVPUSH ONETIME ONE Stop: 12/12/19 13:50 Last Admin: 12/12/19 13:49 Dose: 2 mg Midazolam HCl (Versed 1 Mg/Ml) 5 mg .ROUTE .STK-MED ONE Stop: 12/12/19 16:01 Midazolam HCl (Versed 1 Mg/Ml) 10 mg .ROUTE .STK-MED ONE Stop: 12/13/19 17:31 Pantoprazole Sodium (Protonix Iv) 40 mg IVPUSH Q24H BRIANNA Last Admin: 12/12/19 17:19 Dose: 40 mg Succinylcholine Chloride (Quelicin) 125 mg IV ONETIME ONE Stop: 12/12/19 13:52 Last Admin: 12/12/19 13:51 Dose: 125 mg Succinylcholine Chloride (Quelicin) 200 mg .ROUTE .STK-MED ONE Stop: 12/12/19 16:01 Succinylcholine Chloride (Quelicin) 200 mg IV ONETIME ONE Stop: 12/13/19 17:01 Last Admin: 12/13/19 17:15 Dose: 200 mg Vecuronium [place] (Vecuronium) 9 mg IVPUSH ONETIME ONE Stop: 12/12/19 14:02 Last Admin: 12/12/19 14:02 Dose: 9 mg Vecuronium [place] (Vecuronium) 10 mg .ROUTE .STK-MED ONE Stop: 12/12/19 16:01 Vecuronium [place] (Vecuronium) Confirm Administered Dose 10 mg .ROUTE .STK-MED ONE Stop: 12/13/19 20:59 Last Admin: 12/14/19 11:04 Dose: Not Given Vecuronium [place] (Vecuronium) Confirm Administered Dose 10 mg .ROUTE .STK-MED ONE Stop: 12/13/19 23:02 Last Admin: 12/14/19 11:05 Dose: Not Given Sepsis Event Note - Evaluation Sepsis Screening Result: No Definite Risk - Focused Exam Vital Signs: Vital Signs Temp Pulse Resp BP BP Pulse Ox Pulse Ox 12/15/19 18:09 97 12/15/19 18:00 99.3 F 17 137/54 L 96 12/15/19 17:00 99.0 F 16 129/48 L 93 L 12/15/19 16:44 97.5 F 17 155/67 H 97 12/15/19 16:37 100 12/15/19 16:00 97.5 F 16 137/64 91 L 12/15/19 14:59 97.5 F 14 143/66 H 96 12/15/19 14:10 99 12/15/19 14:00 97.7 F 13 139/64 95 12/15/19 13:00 97.3 F 15 132/89 99 12/15/19 12:14 97 12/15/19 12:00 97.2 F 16 123/63 97 12/15/19 11:00 97.0 F 16 118/60 97 12/15/19 10:08 94 L 12/15/19 10:00 35.8 F L 13 128/71 94 L 12/15/19 09:00 96.4 F L 13 139/68 95 12/15/19 08:06 68 14 98 12/15/19 08:00 96.1 F L 14 114/50 L 98 12/15/19 07:00 95.9 F L 13 112/68 97 Date Exam was Performed: 12/17/19 Time Exam was Performed: 10:27 - Problem List & Annotations (1) Suicide attempt by drug ingestion SNOMED Code(s): 70634392, 79799142 Code(s): T50.902A - POISONING BY UNSP DRUG/MEDS/BIOL SUBST, SELF-HARM, INIT Status: Acute Current Visit: Yes (2) Hypotension due to drugs Status: Acute Current Visit: Yes (3) Hypoxia SNOMED Code(s): 188369198 Code(s): R09.02 - HYPOXEMIA Status: Acute Current Visit: Yes (4) Intentional acetaminophen overdose SNOMED Code(s): 237002643 Code(s): T39.1X2A - POISONING BY 4-AMINOPHENOL DERIVATIVES, SELF-HARM, INIT Status: Acute Current Visit: Yes Qualifiers: Encounter type: initial encounter Qualified Code(s): T39.1X2A - Poisoning by 4-Aminophenol derivatives, intentional self-harm, initial encounter (5) Hyperglycemia SNOMED Code(s): 69997579 Code(s): R73.9 - HYPERGLYCEMIA, UNSPECIFIED Status: Acute Current Visit: Yes (6) Polysubstance abuse SNOMED Code(s): 220373189 Code(s): F19.10 - OTHER PSYCHOACTIVE SUBSTANCE ABUSE, UNCOMPLICATED Status : Acute Current Visit: Yes (7) Acute kidney injury SNOMED Code(s): 61533084, 39178048 Code(s): N17.9 - ACUTE KIDNEY FAILURE, UNSPECIFIED Status: Acute Current Visit: Yes (8) Calcium oxalate crystals in urine SNOMED Code(s): 389959403 Code(s): R82.998 - OTHER ABNORMAL FINDINGS IN URINE Status: Acute Current Visit: Yes - My Orders Last 24 Hours: My Active Orders 12/14/19 19:30 One To One Therapy [BH] Routine 12/15/19 06:57 PROCALCITONIN [REF] Routine 12/15/19 16:10 CULTURE SPUTUM + SMEAR [RM] Routine 12/15/19 17:00 HYDROmorphone [Dilaudid] 1 mg IVPUSH Q1H Levofloxacin/Dextrose 5%-Water [Levaquin in D5W 750 MG/150 ML] 750 mg Premix Bag 1 bag IV Q24H Pharmacy to Dose - Vancomycin 1 dose .XX ONETIME ONE 12/15/19 17:21 Blood Culture x2 Reflex Set [OM.PC] Stat 12/15/19 17:22 Blood Culture x2 Reflex Set [OM.PC] Stat 12/15/19 17:50 CULTURE BLOOD [BC] Stat 12/15/19 17:55 CULTURE BLOOD [BC] Stat 12/15/19 18:00 Vancomycin 1 gm Vancomycin 250 mg Sodium Chloride 0.9% [Normal Saline] 500 ml IV Q8H 12/15/19 18:20 CULTURE BLOOD [BC] Stat 12/16/19 01:00 Piperacillin/Tazobactam [Piperacil-Tazobact] 4.5 gm Sodium Chloride 0.9% [ Normal Saline] 100 ml IV Q8H - Plan Plan:: Suicide attempt by drug ingestion Hypotension and hypoxemia due to medication overdose Acetaminophen toxicity Calcium oxalate crystals in urine in the setting of unknown amount of medications Acute kidney injury Polysubstance abuse (methamphetamines, opiates and oxycodone) Alert and responsive upon arrival to the ED --> decline in mental status --> intubated for airway protection BP dropped, non-responsive to IVF --> started on norepinephrine Elevated Tylenol level --> poison control contacted and recommended + NAC infusion--> 16 hour portion today Posion control recommended sedation with BDS--> requirin high doses of Versed and Propofol for sedation PLAN BY SYSTEMS Neurologic: Continue sedation with Versed and Propofol for now and taper down as tolerated. Goal RASS -4 to 0. Sedation vacation today Continue seizure precautions Minimize central acting medications as possible. Pulmonary: Continue mechanical ventilation with SBT today Endotracheal tube care by RT. Regular suctioning. Aspiration precautions. ABGs now Cardiovascular: Continue norepinephrine, taper down with MAP goal >65 CVP Monitoring. Continue norepinephrine, goal MAP above 65, taper down as tolerated IVF with LR at 250ml/hr Kidney and electrolytes: Monique catheter for output monitoring. Goal urine output >40ml/hr Repeat BMP in PM with Mg and PO4. Strict monitoring of intake, output and overall fluid balance. Maintain neutral as possible. Avoid nephrotoxic medications. Monitor electrolytes and replace as needed. Trend creatinine and BUN. GI, Liver and nutrition: Continue N-acetyl cysteine 21 hour infusion protocol. Repeat Tylenol level, CMP as well as PT/INR in PM Follow up with poison control OG tube care by nursing staff. Start enteral nutrition today Endocrine: Scheduled Accu-checks every 6 hours while NPO Hypoglycemia protocol in place. Infectious disease: Trend temperature. Panculture if febrile. No need for antibiotic therapy for now Hematology and coagulation: Monitor for signs of active bleeding. Repeat PT/INR at PM. No active bleeding, no coagulopathy to correct, no need to transfuse blood products at the moment. Goal Hb >7g/dL Musculoskeletal and skin: Bed turn rotation by nursing staff. Daily evaluation for pressure ulcers. Psychiatric: Pending records from [place] Obtain controlled substance monitoring program record for patient Psychiatry consult once appropriate Monitor for drug toxicities as per primary problem. PROPHYLAXIS: DVT- SCDs due to risk of coagulopathy secondary to Tylenol overdose GI- Pantoprazole CODE STATUS: FULL CODE DISPOSITION: Patient will remain admitted in the ICU for mechanical ventilation and monitorization of drug toxicities. Will do spontaneous breathing trial today He will need to transition to inpatient psychiatry once medically stable.
[2019-12-15] MEDS ORDERED: HYDROmorphone 0.5 MG/0.5 ML Syringe IVPUSH SCH (19:15)
[2019-12-16] MEDS: HYDROmorphone 1 MG/ML Syringe IVPUSH SCH ×24 (00:02→23:00)
[2019-12-16] MEDS: Piperacillin/Tazobactam 4.5 GM in Sodium Chloride 0.9% 100 ML IV SCH ×3 (01:04→16:53)
[2019-12-16] MEDS: propofoL 100 ML IV SCH ×5 (02:49→20:16)
[2019-12-16] MEDS: Lactated Ringers 1,000 ML IV SCH ×4 (04:08→23:44)
[2019-12-16] MEDS: Norepinephrine 4 MG in Dextrose 5% in Water 246 ML IV SCH ×4 (04:09→12:26)
[2019-12-16] MEDS: Pantoprazole 40 MG Vial IVPUSH SCH (08:07)
[2019-12-16] MEDS: Vancomycin 1 GM, Vancomycin 250 MG in Sodium Chloride 0.9% 250 ML IV SCH ×2 (10:01→18:02)
--- NOTE | 2019-12-16 15:24 | CR ---
Chest x-ray: Portable view of the chest was obtained. Comparison: Prior chest x-ray of 12/16/19, time 2:28 PM. Increasing density is seen within both lung bases from prior study. Heart size is mildly prominent. Increased density is noted within the left upper lung. Tip of endotracheal tube lies above the owen in satisfactory position. Bony structures are grossly intact. Probable pleural effusions are present. Right jugular line is noted. Impression: 1. Increasing areas of consolidation within both lung bases and within the left upper lung. 2. Probable bilateral pleural effusions. 3. Heart size mildly enlarged. 4. Satisfactory position of endotracheal tube above the owen. Right jugular line is stable. Diagnostic code #3 This report was dictated in [place] Standard Time I agree with preliminary report from ad, finalized on 12/16/19, 12:33 PM Central Time
--- NOTE | 2019-12-16 15:24 | CT ---
CT chest Technique: Multiple axial sections through the chest were obtained. Intravenous contrast was not utilized. Comparison: Prior chest x-ray performed earlier on the same day (10:37 AM). Findings: Endotracheal tube is seen. Tip lies at the owen. This is slightly lower in position than seen on prior chest x-ray. Areas of consolidation are seen with the left upper lung as well as within both lower lungs. Very small pleural effusions are seen bilaterally. Heart is felt to be slightly enlarged. Right jugular line is seen. Nasogastric tube courses through the mediastinum into the stomach. Bone window settings were reviewed which shows no acute osseous finding. Visualized upper abdominal structures shows a minimale cyst within the upper left kidney which is partially visualized measuring 9 mm. Other visualized noncontrast upper abdominal structures shows no discrete abnormality. Impression: 1. Tip of endotracheal tube at the level of the owen which has moved slightly distally from recent chest x-ray. This could be withdrawn by about 2 cm. 2. Areas of consolidation within both lung bases as well as left upper lung. Very minimal bilateral pleural effusions are seen. 3. Other findings as noted above which are nonacute. Diagnostic code #3 This report was dictated in [place] Standard Time I agree with preliminary report from [facility], finalized on 12/16/19, 1:38 PM Central Time
[2019-12-16] MEDS ORDERED: Amoxicillin 500 MG Cap PO SCH (16:15)
[2019-12-16] MEDS: Levofloxacin/Dextrose 5%-Water 750 MG in Premix Bag 1 BAG IV SCH (16:51)
--- NOTE | 2019-12-16 18:21 | CR ---
Chest: Portable view of the chest was obtained. Comparison: Prior chest CT and chest x-ray performed on the same day. Heart size is slightly enlarged. Upper mediastinum is normal. Patchy areas of increased density with left upper and within both lower lungs. Tip of endotracheal tube has been withdrawn and now is in satisfactory position at the level of the clavicles. Right jugular line remains. Nasogastric tube is also noted. Impression: 1. Diffuse parenchymal densities as noted above. 2. Stable cardiomegaly. 3. Satisfactory position of endotracheal tube. Diagnostic code #3 This report was dictated in [place] Standard Time I agree with preliminary report from [facility], finalized on 12/16/19, 2:30 PM Central Time
[2019-12-16] MEDS ORDERED: propofoL 100 ML ONE (20:15)
[2019-12-17] MEDS: propofoL 100 ML IV SCH ×3 (00:20→10:37)
[2019-12-17] MEDS: Piperacillin/Tazobactam 4.5 GM in Sodium Chloride 0.9% 100 ML IV SCH ×2 (00:56→08:03)
[2019-12-17] MEDS: HYDROmorphone 1 MG/ML Syringe IVPUSH SCH ×12 (01:00→10:44)
[2019-12-17] MEDS: Vancomycin 1.75 GM in Sodium Chloride 0.9% 500 ML IV SCH ×2 (01:45→10:22)
[2019-12-17] MEDS ORDERED: Sodium Chloride 0.9% 500 ML IV ONE (01:55)
[2019-12-17] MEDS: Norepinephrine 4 MG in Dextrose 5% in Water 246 ML IV SCH ×2 (02:39)
[2019-12-17] MEDS: Lactated Ringers 1,000 ML IV SCH (06:23)
[2019-12-17] MEDS: Pantoprazole 40 MG Vial IVPUSH SCH (08:03)
--- NOTE | 2019-12-17 09:56 | PCM.DCSUM1 ---
Discharge Summary - Hospital Course HPI Initial Comments: Patient intubated upon my evaluation so information obtained by chart review and verbal report from staff. "29-year-old male presents to the ED per [facility]. Police are also here. They indicate that they got a call through dispatch for a 28-year-old male who had intentionally taken an overdose of medications in a suicide attempt. Patient appears very drowsy and is mildly dysarthric but is able to provide a useful history terms of old injuries but he cannot identify a specific time when he took medication. Apparently he took several tablets of Percocet again dosage unknown and not his prescription. Also took an excessive amount of Adderall reportedly. Unclear if he took any other medications. Has an unambiguous wish to be . He has many times that he does not wish to be here. He never gave any other further history as to why he was feeling suicidal. He is nauseated and has taken some Zofran. Denies any vomiting." Diagnosis: Stroke: No - Discharge Data Discharge Date: 12/17/19 Discharge Disposition: DC/Tfer to Acute Hospital 02 Condition: Good - Referral to Home Health Primary Care Physician: PCP None - Discharge Diagnosis/Problem(s) (1) Suicide attempt by drug ingestion SNOMED Code(s): 02454552, 33853839 ICD Code: T50.902A - POISONING BY UNSP DRUG/MEDS/BIOL SUBST, SELF-HARM, INIT Status: Acute Current Visit: Yes (2) Hypotension due to drugs Status: Acute Current Visit: Yes (3) Hypoxia SNOMED Code(s): 329382549 ICD Code: R09.02 - HYPOXEMIA Status: Acute Current Visit: Yes (4) Intentional acetaminophen overdose SNOMED Code(s): 095200947 ICD Code: T39.1X2A - POISONING BY 4-AMINOPHENOL DERIVATIVES, SELF-HARM, INIT Status: Acute Current Visit: Yes Qualifiers: Encounter type: initial encounter Qualified Code(s): T39.1X2A - Poisoning by 4-Aminophenol derivatives, intentional self-harm, initial encounter (5) Hyperglycemia SNOMED Code(s): 28507073 ICD Code: R73.9 - HYPERGLYCEMIA, UNSPECIFIED Status: Acute Current Visit : Yes (6) Polysubstance abuse SNOMED Code(s): 411191803 ICD Code: F19.10 - OTHER PSYCHOACTIVE SUBSTANCE ABUSE, UNCOMPLICATED Status : Acute Current Visit: Yes (7) Acute kidney injury SNOMED Code(s): 36777203, 84918337 ICD Code: N17.9 - ACUTE KIDNEY FAILURE, UNSPECIFIED Status: Acute Current Visit: Yes (8) Calcium oxalate crystals in urine SNOMED Code(s): 425508994 ICD Code: R82.998 - OTHER ABNORMAL FINDINGS IN URINE Status: Acute Current Visit: Yes (9) ARDS (adult respiratory distress syndrome) SNOMED Code(s): 13643436, 54831133 ICD Code: J80 - ACUTE RESPIRATORY DISTRESS SYNDROME Status: Acute Current Visit: Yes (10) Aspiration pneumonia SNOMED Code(s): 231546199 ICD Code: J69.0 - PNEUMONITIS DUE TO INHALATION OF FOOD AND VOMIT Status: Acute Current Visit: Yes (11) Aspiration pneumonitis SNOMED Code(s): 192364191 ICD Code: J69.0 - PNEUMONITIS DUE TO INHALATION OF FOOD AND VOMIT Status: Acute Current Visit: Yes - Patient Summary/Data Operative Procedure(s) Performed: 12/12- intubation and right internal jugular central line. 12/13- re-intubation and arterial line Complications: None Consults: Consultations 12/12/19 16:42 Consult to Case Management/P[employer]ing [employer] [CONS] Routine Hospital Course: This is a 29year old male without any past medical history who was brought to the ED after being found with altered mental status by girlfriend on 12/12. As per patient's girlfriend he was making some remarks about hurting himself and was on video call with boss when he took 2 kinds of medications. Once in the ED he was conscious but eventually started having some slurring of speech and decline in mental status and VS for which he was intubated for airway protection and started on norepinephrine for BP. He was transferred to the ICU and maintained sedated overnight with versed and propofol, required very high rates of sedation medications with propofol up to 60 and versed 18. 21 hours NAC infusion protocol was started 12/13 - Sedation vacation and SBT were performed which he tolerated fine for which he was extubated - 3 to 4 hours later patient developed a fever with a Tmax of 104.7, tachycardia >140s and MAP > 120s for which poison control was reconsulted who recommended reintubation with sedation and paralyzation for sympathicomimetic crisis. - Sedation with propofol and versed were started - Paralyzed with vecuronium - External cooling was also performed - Infusion with cooled LR was performed - Poison control recommended core temp goal of 36 - Arterial line was placed - Urine output increased significantly during cooling and paralyzation, however this normalized after 8 hours 12/14 - Started on tube feeds - Sedation with propofol, versed and fentanyl - Paralyzed with vecuronium - Norepinephrine drip - Poison control recommended to continue current management early in the day however temperature started going up from 26 to 27 for which they recommended to stop the Fentanyl drip with the concern that this might be raising the temperature and asked to start Dilaudid drip, due to poor availability of this they recommended we start patient on Dilaudid doses every 1 hour until temperature dropped back down to below 36 12/15 - Continued versed, propofol and Dilaudid - CXR performed and had multiple patchy infiltrates, started on levaquin, zosyn and vancomycin 12/16 - Oxygenation dropped down to mid 80s, CXR performed with worsening infiltrates - CT chest was performed and patient has diffuse patchy infiltrated worse on the left lung - ABGs were used to taper ventilation parameters 12/17 - PEEP was increased up to 16 with FiO2 40% which maintained oxygenation > 90% Electrolytes were replaced as needed IVF throughout admission with LR Last documented BM 12/12 - Discharge Plan *PRESCRIPTION DRUG MONITORING PROGRAM REVIEWED*: Not Applicable *COPY OF PRESCRIPTION DRUG MONITORING REPORT IN PATIENT GOMEZ: Not Applicable Home Medications: Home Meds Loratadine 10 mg PO DAILY PRN 12/12/19 [History] Amphetamine/Dextroamphetamine [Adderall XR] 30 mg PO BID 12/13/19 [History] Baclofen 20 mg PO BID PRN 12/13/19 [History] Calcium Carbonate [Calcium] 1,000 mg PO DAILY 12/13/19 [History] Codeine/Promethazine HCl [Promethazine-Codeine Syrup] 5 ml PO BID PRN 12/13/19 [ History] Esomeprazole Magnesium 40 mg PO BID 12/13/19 [History] Magnesium 400 mg PO DAILY 12/13/19 [History] Metoprolol Tartrate 25 mg PO BID 12/13/19 [History] Naproxen 375 mg PO BID PRN 12/13/19 [History] Omeprazole 20 mg PO DAILY 12/13/19 [History] Ondansetron [Zofran ODT] 4 mg SL Q4HR 12/13/19 [History] Phenylephrine HCl [Sudafed PE] 10 mg PO Q4HR 12/13/19 [History] Sildenafil [Viagra] 50 - 100 mg PO DAILY PRN MDD Erectile Dysfuction 12/13/19 [ History] Venlafaxine HCl 37.5 mg PO BID 12/13/19 [History] Zinc Gluconate [Zinc] 15 mg PO DAILY 12/13/19 [History] hydrOXYzine HCL [hydrOXYzine] 25 mg PO QID PRN 12/13/19 [History] methylPREDNISolone [Medrol] 4 mg PO ASDIRECTED 12/13/19 [History] tiZANidine [Zanaflex] 4 mg PO Q8HR PRN 12/13/19 [History] Patient Handouts: Acetaminophen Overdose, Hypoxemia, Drug Overdose, Opioid Overdose Forms: ED Department Discharge Referrals: PCP,Unknown [Ordering Only Provider] - - Discharge Summary/Plan Comment DC Time >30 min.: Yes - General Info Date of Service: 12/17/19 Subjective Update: Drips - Propofol 40 - Versed 12 - Norepinephrine 5 - Dilaudid 1mg q1h - LR 150 VS trend - MAP: 76-95 - HR: 58-126 - Tmax: 104.7 I/O - Urine output: 4,065 - Balance: -2,360 - OG tube output: 230 Mechanical ventilation, volume A/C VT- 450 PEEP-16 Rate-18 FiO2: 40% - Patient Data Vitals - Most Recent: Last Vital Signs Temp 99.1 F 12/17/19 08:00 Pulse 73 12/17/19 06:30 Resp 18 12/17/19 08:00 BP 112/55 L 12/17/19 08:00 Pulse Ox 100 12/17/19 08:00 Weight - Most Recent: 82.599 kg - Exam General: Reports: Sedated HEENT: Reports: Pupils Equal, Pupils Reactive. Denies: Mucous Membr. Moist/[place] Neck: Reports: Supple, Trachea Midline, JVD. Denies: No JVD Lungs: Reports: Decreased Breath Sounds, Crackles, Rhonchi. Denies: Rales, Rub , Wheezing Cardiovascular: Reports: Regular Rate, Regular Rhythm. Denies: Murmurs, Gallops , Rubs GI/Abdominal Exam: Soft, Non-Tender. No: Normal Bowel Sounds Extremities: Normal Inspection, No Pedal Edema, Slow Capillary Refill Skin: Reports: Dry, Intact, Cool Discharge Operative/Procedures - Procedures Performed Intubation Indication: Respiratory Failure, Airway Protection Arterial Line Indication: hemodynamic monitoring CL Indication: IV access, hemodynamic monitoring, medication administration
--- NOTE | 2019-12-17 09:56 | PCM.PN ---
- General Info Date of Service: 12/16/19 - Patient Data Vitals - Most Recent: Last Vital Signs Temp 99.1 F 12/17/19 08:00 Pulse 73 12/17/19 06:30 Resp 18 12/17/19 08:00 BP 112/55 L 12/17/19 08:00 Pulse Ox 100 12/17/19 08:00 Weight - Most Recent: 82.599 kg I&O - Last 24 Hours: Intake & Output 12/16/19 12/17/19 12/17/19 22:59 06:59 14:59 Intake Total 3458 3735 Output Total 7735 850 225 Balance 933 2885 -225 Lab Results Last 24 Hours: Laboratory Results - last 24 hr 12/13/19 12/13/19 12/16/19 Range/Units 16:49 16:49 11:10 WBC (4.23-9.07) K/mm3 RBC (4.63-6.08) M/mm3 Hgb (13.7-17.5) gm/dl Hct (40.1-51.0) % MCV (79.0-92.2) fl MCH (25.7-32.2) pg MCHC (32.2-35.5) g/dl RDW Std Deviation (35.1-43.9) fL Plt Count (163-337) K/mm3 MPV (9.4-12.3) fl Neut % (Auto) (34.0-67.9) % Lymph % (Auto) (21.8-53.1) % Shelby % (Auto) (5.3-12.2) % Eos % (Auto) (0.8-7.0) Baso % (Auto) (0.1-1.2) % Neut # (Auto) (1.78-5.38) K/mm3 Lymph # (Auto) (1.32-3.57) K/mm3 Shelby # (Auto) (0.30-0.82) K/mm3 Eos # (Auto) (0.04-0.54) K/mm3 Baso # (Auto) (0.01-0.08) K/mm3 Manual Slide Review Puncture Site Art ABG pH 7.35 (7.35-7.45) ABG pCO2 45.9 H (35.0-45.0) mmHg ABG pO2 72.0 L (80.0-100.0) mmHg ABG HCO3 24.9 (22.0-26.0) meq/L ABG O2 Saturation 93.8 L (96.0-97.0) % ABG Base Excess -0.5 (-2-2.0) Javier Test Positive A-a Gradient 372 mmHg O2 Delivery Device Ventilator FiO2 0.00 L (21.00-100.00) % Tidal Volume 550.0 cc PEEP 6.0 cmH20 Pressure Support 0.0 cmH2O POC Glucose (70-105) mg/dL Lactic Acid (0.4-2.0) mmol/L Ur Potassium Concent 10.0 mEq/L Ur Chloride Concentrat 52 mEq/L Vancomycin Trough (10.0-20.0) 12/16/19 12/16/19 12/16/19 Range/Units 12:49 13:19 16:14 WBC (4.23-9.07) K/mm3 RBC (4.63-6.08) M/mm3 Hgb (13.7-17.5) gm/dl Hct (40.1-51.0) % MCV (79.0-92.2) fl MCH (25.7-32.2) pg MCHC (32.2-35.5) g/dl RDW Std Deviation (35.1-43.9) fL Plt Count (163-337) K/mm3 MPV (9.4-12.3) fl Neut % (Auto) (34.0-67.9) % Lymph % (Auto) (21.8-53.1) % Shelby % (Auto) (5.3-12.2) % Eos % (Auto) (0.8-7.0) Baso % (Auto) (0.1-1.2) % Neut # (Auto) (1.78-5.38) K/mm3 Lymph # (Auto) (1.32-3.57) K/mm3 Shelby # (Auto) (0.30-0.82) K/mm3 Eos # (Auto) (0.04-0.54) K/mm3 Baso # (Auto) (0.01-0.08) K/mm3 Manual Slide Review Puncture Site Art Art ABG pH 7.29 L 7.33 L (7.35-7.45) ABG pCO2 56.7 H 51.5 H (35.0-45.0) mmHg ABG pO2 69.0 L 100.0 (80.0-100.0) mmHg ABG HCO3 26.1 H 26.4 H (22.0-26.0) meq/L ABG O2 Saturation 91.6 L 97.2 H (96.0-97.0) % ABG Base Excess -1.1 0.2 (-2-2.0) Javier Test Positive Positive A-a Gradient 146 mmHg O2 Delivery Device Ventilator Ventilator FiO2 0.00 L 0.00 L (21.00-100.00) % Tidal Volume 450.0 450.0 cc PEEP 12.0 16.0 cmH20 Pressure Support 0.0 cmH2O POC Glucose 78 (70-105) mg/dL Lactic Acid (0.4-2.0) mmol/L Ur Potassium Concent mEq/L Ur Chloride Concentrat mEq/L Vancomycin Trough (10.0-20.0) 12/16/19 12/16/19 12/16/19 Range/Units 16:15 17:29 17:29 WBC (4.23-9.07) K/mm3 RBC (4.63-6.08) M/mm3 Hgb (13.7-17.5) gm/dl Hct (40.1-51.0) % MCV (79.0-92.2) fl MCH (25.7-32.2) pg MCHC (32.2-35.5) g/dl RDW Std Deviation (35.1-43.9) fL Plt Count (163-337) K/mm3 MPV (9.4-12.3) fl Neut % (Auto) (34.0-67.9) % Lymph % (Auto) (21.8-53.1) % Shelby % (Auto) (5.3-12.2) % Eos % (Auto) (0.8-7.0) Baso % (Auto) (0.1-1.2) % Neut # (Auto) (1.78-5.38) K/mm3 Lymph # (Auto) (1.32-3.57) K/mm3 Shelby # (Auto) (0.30-0.82) K/mm3 Eos # (Auto) (0.04-0.54) K/mm3 Baso # (Auto) (0.01-0.08) K/mm3 Manual Slide Review Puncture Site Art line ABG pH 7.36 (7.35-7.45) ABG pCO2 46.7 H (35.0-45.0) mmHg ABG pO2 92.0 (80.0-100.0) mmHg ABG HCO3 25.7 (22.0-26.0) meq/L ABG O2 Saturation 97.0 (96.0-97.0) % ABG Base Excess 0.3 (-2-2.0) Javier Test Positive A-a Gradient 136 mmHg O2 Delivery Device Ventilator FiO2 40.00 (21.00-100.00) % Tidal Volume 450.0 cc PEEP 16.0 cmH20 Pressure Support 0.0 cmH2O POC Glucose (70-105) mg/dL Lactic Acid 0.7 (0.4-2.0) mmol/L Ur Potassium Concent mEq/L Ur Chloride Concentrat mEq/L Vancomycin Trough 9.2 L (10.0-20.0) 12/16/19 12/17/19 12/17/19 Range/Units 18:07 00:08 06:05 WBC (4.23-9.07) K/mm3 RBC (4.63-6.08) M/mm3 Hgb (13.7-17.5) gm/dl Hct (40.1-51.0) % MCV (79.0-92.2) fl MCH (25.7-32.2) pg MCHC (32.2-35.5) g/dl RDW Std Deviation (35.1-43.9) fL Plt Count (163-337) K/mm3 MPV (9.4-12.3) fl Neut % (Auto) (34.0-67.9) % Lymph % (Auto) (21.8-53.1) % Shelby % (Auto) (5.3-12.2) % Eos % (Auto) (0.8-7.0) Baso % (Auto) (0.1-1.2) % Neut # (Auto) (1.78-5.38) K/mm3 Lymph # (Auto) (1.32-3.57) K/mm3 Shelby # (Auto) (0.30-0.82) K/mm3 Eos # (Auto) (0.04-0.54) K/mm3 Baso # (Auto) (0.01-0.08) K/mm3 Manual Slide Review Puncture Site ABG pH (7.35-7.45) ABG pCO2 (35.0-45.0) mmHg ABG pO2 (80.0-100.0) mmHg ABG HCO3 (22.0-26.0) meq/L ABG O2 Saturation (96.0-97.0) % ABG Base Excess (-2-2.0) Javier Test A-a Gradient mmHg O2 Delivery Device FiO2 (21.00-100.00) % Tidal Volume cc PEEP cmH20 Pressure Support cmH2O POC Glucose 112 H 105 96 (70-105) mg/dL Lactic Acid (0.4-2.0) mmol/L Ur Potassium Concent mEq/L Ur Chloride Concentrat mEq/L Vancomycin Trough (10.0-20.0) 12/17/19 12/17/19 Range/Units 09:00 09:50 WBC 13.75 H (4.23-9.07) K/mm3 RBC 4.27 L (4.63-6.08) M/mm3 Hgb 12.5 L (13.7-17.5) gm/dl Hct 39.0 L (40.1-51.0) % MCV 91.3 (79.0-92.2) fl MCH 29.3 (25.7-32.2) pg MCHC 32.1 L (32.2-35.5) g/dl RDW Std Deviation 47.0 H (35.1-43.9) fL Plt Count 179 (163-337) K/mm3 MPV 11.2 (9.4-12.3) fl Neut % (Auto) 83.4 H (34.0-67.9) % Lymph % (Auto) 7.1 L (21.8-53.1) % Shelby % (Auto) 7.3 (5.3-12.2) % Eos % (Auto) 1.7 (0.8-7.0) Baso % (Auto) 0.1 (0.1-1.2) % Neut # (Auto) 11.46 H (1.78-5.38) K/mm3 Lymph # (Auto) 0.98 L (1.32-3.57) K/mm3 Shelby # (Auto) 1.01 H (0.30-0.82) K/mm3 Eos # (Auto) 0.23 (0.04-0.54) K/mm3 Baso # (Auto) 0.02 (0.01-0.08) K/mm3 Manual Slide Review Abnormal smear Puncture Site A-line ABG pH 7.39 (7.35-7.45) ABG pCO2 48.8 H (35.0-45.0) mmHg ABG pO2 85.0 (80.0-100.0) mmHg ABG HCO3 29.2 H (22.0-26.0) meq/L ABG O2 Saturation 96.4 (96.0-97.0) % ABG Base Excess 3.9 H (-2-2.0) Javier Test A-a Gradient 140 mmHg O2 Delivery Device Ventilator FiO2 40.00 (21.00-100.00) % Tidal Volume 450.0 cc PEEP 16.0 cmH20 Pressure Support cmH2O POC Glucose (70-105) mg/dL Lactic Acid (0.4-2.0) mmol/L Ur Potassium Concent mEq/L Ur Chloride Concentrat mEq/L Vancomycin Trough (10.0-20.0) Yfn Results Last 24 Hours: Microbiology 12/15/19 17:55 Aerobic Blood Culture - Preliminary Blood - Venous NO GROWTH AFTER 1 DAY Anaerobic Blood Culture - Preliminary NO GROWTH AFTER 1 DAY 12/15/19 18:20 Aerobic Blood Culture - Preliminary Blood - Venous - Lab Draw NO GROWTH AFTER 1 DAY Anaerobic Blood Culture - Preliminary NO GROWTH AFTER 1 DAY 12/15/19 17:50 Aerobic Blood Culture - Preliminary Blood - Central Line NO GROWTH AFTER 1 DAY Anaerobic Blood Culture - Preliminary NO GROWTH AFTER 1 DAY 12/15/19 16:10 Gram Stain - Preliminary Sputum - Induced Sputum Culture - Preliminary Beta Streptococcus Group F Med Orders - Current: Current Medications Dextrose/Water (Dextrose 50% In Water) 50 ml IVPUSH ASDIRECTED PRN PRN Reason: Hypoglycemia Hydromorphone HCl (Dilaudid) 1 mg IVPUSH Q1H BRIANNA Last Admin: 12/17/19 09:04 Dose: 1 mg Norepinephrine Bitartrate 4 mg (/ Dextrose/Water) 250 mls @ 15 mls/hr IV TITRATE BRIANNA; Protocol Last Titration: 12/17/19 09:20 Dose: 4 mcg/min, 15 mls/hr Lactated Ringer's (Ringers, Lactated) 1,000 mls @ 150 mls/hr IV ASDIRECTED BRIANNA Last Admin: 12/17/19 06:23 Dose: 150 mls/hr Propofol (Diprivan 100 Ml) 100 mls @ 9.879 mls/hr IV TITRATE BRIANNA; Protocol Last Titration: 12/17/19 09:19 Dose: 35 mcg/kg/min, 17.289 mls/hr Fentanyl 2,500 mcg/ Sodium (Chloride) 250 mls @ 5 mls/hr IV TITRATE BRIANNA; Protocol Last Titration: 12/14/19 19:15 Dose: 0 mcg/hr, 0 mls/hr Vecuronium Langley 10 mg/ (Sodium Chloride) 100 mls @ 39.64 mls/hr IV ASDIRECTED BRIANNA; Protocol Last Titration: 12/14/19 08:06 Dose: 0 mcg/kg/min, 0 mls/hr Midazolam HCl 100 mg/ Sodium (Chloride) 100 mls @ 25 mls/hr IV TITRATE BRIANNA Last Infusion: 12/17/19 09:20 Dose: 10 mls/hr Levofloxacin/Dextrose 750 mg/ (Premix) 150 mls @ 100 mls/hr IV Q24H BRIANNA Last Admin: 12/16/19 16:51 Dose: 100 mls/hr Piperacillin Sod/Tazobactam (Sod 4.5 gm/ Sodium Chloride) 100 mls @ 25 mls/hr IV Q8H BRIANNA Last Admin: 12/17/19 08:03 Dose: 25 mls/hr Vancomycin HCl 1.75 gm/ Sodium (Chloride) 500 mls @ 250 mls/hr IV Q8H BRIANNA Last Admin: 12/17/19 01:45 Dose: 250 mls/hr Sodium Chloride (Normal Saline) 500 mls @ 10 mls/hr IV ASDIRECTED ONE Stop: 12/19/19 03:54 Lorazepam (Ativan) 2 mg IVPUSH Q5M PRN PRN Reason: SEE LABEL COMMENTS Last Admin: 12/13/19 17:05 Dose: 2 mg Pantoprazole Sodium (Protonix Iv) 40 mg IVPUSH DAILY [facility] Last Admin: 12/17/19 08:03 Dose: 40 mg Vancomycin HCl (Pharmacy To Dose - Vancomycin) 1 dose .XX ASDIRECTED PRN PRN Reason: RX TO DOSE VANCO Discontinued Medications Etomidate (Amidate) 25 mg IVPUSH ONETIME ONE Stop: 12/12/19 13:51 Last Admin: 12/12/19 13:50 Dose: 25 mg Etomidate (Amidate) 40 mg IVPUSH .STK-MED ONE Stop: 12/12/19 16:01 Etomidate (Amidate) 40 mg IVPUSH ONETIME ONE Stop: 12/13/19 18:05 Last Admin: 12/13/19 17:14 Dose: 40 mg Heparin Sodium (Porcine) (Heparin Lock Flush 100 Units/Ml) Confirm Administered Dose 500 units .ROUTE .STK-MED ONE Stop: 12/15/19 12:29 Last Admin: 12/15/19 13:06 Dose: Not Given Heparin Sodium (Porcine) (Heparin Lock Flush 100 Units/Ml) Confirm Administered Dose 1,000 units .ROUTE .STK-MED ONE Stop: 12/15/19 12:32 Last Admin: 12/15/19 13:06 Dose: Not Given Heparin Sodium (Porcine) (Heparin Lock Flush 100 Units/Ml) 500 units FLUSH ASDIRECTED PRN PRN Reason: Other Last Admin: 12/15/19 12:45 Dose: 500 units Hydromorphone HCl (Dilaudid) 1 mg IVPUSH Q1H [facility] Last Admin: 12/15/19 08:13 Dose: 1 mg Hydromorphone HCl (Dilaudid) 1 mg IVPUSH Q2H [facility] Stop: 12/15/19 11:16 Last Admin: 12/15/19 11:45 Dose: 1 mg Hydromorphone HCl (Dilaudid) 0.5 mg IVPUSH Q2H [facility] Stop: 12/15/19 15:16 Last Admin: 12/15/19 15:27 Dose: 0.5 mg Hydromorphone HCl (Dilaudid) 0.5 mg IVPUSH Q4H [facility] Stop: 12/15/19 23:16 Dextrose/Sodium Chloride (Dextrose 5%-Normal Saline) 1,000 mls @ 999 mls/hr IV ASDIRECTED BRIANNA Last Admin: 12/12/19 12:44 Dose: 999 mls/hr Sodium Chloride (Normal Saline) 1,000 mls @ 1,000 mls/hr IV ONETIME ONE Stop: 12/12/19 14:59 Last Admin: 12/12/19 14:00 Dose: 1,000 mls/hr Sodium Chloride (Normal Saline) Confirm Administered Dose 1,000 mls @ as directed .ROUTE .STK-MED ONE Stop: 12/12/19 13:57 Last Admin: 12/12/19 14:01 Dose: Not Given Propofol (Diprivan 50 Ml) 50 mls @ 2.449 mls/hr IV TITRATE BRIANNA; Protocol Last Titration: 12/12/19 20:17 Dose: 5 mcg/kg/min, 2.449 mls/hr Midazolam HCl 50 mg/ Sodium (Chloride) 50 mls @ 0.5 mls/hr IV TITRATE BRIANNA; Protocol Stop: 12/14/19 17:00 Last Admin: 12/14/19 14:38 Dose: 20 mg/hr, 20 mls/hr Lactated Ringer's (Ringers, Lactated) 1,000 mls @ 999 mls/hr IV .BOLUS ONE Stop: 12/12/19 17:02 Last Admin: 12/12/19 16:07 Dose: 999 mls/hr Lactated Ringer's (Ringers, Lactated) Confirm Administered Dose 1,000 mls @ as directed .ROUTE .STK-MED ONE Stop: 12/12/19 16:01 Last Admin: 12/12/19 16:06 Dose: Not Given Acetylcysteine 12,300 mg/ (Dextrose/Water) 261.5 mls @ 261.5 mls/hr IV ONETIME ONE Stop: 12/12/19 17:29 Last Admin: 12/12/19 17:18 Dose: 261.5 mls/hr Propofol (Diprivan 100 Ml) Confirm Administered Dose 100 mls @ as directed .ROUTE .STK-MED ONE Stop: 12/12/19 22:13 Last Admin: 12/12/19 23:02 Dose: Not Given Acetylcysteine 4,000 mg/ (Dextrose/Water) 520 mls @ 130 mls/hr IV ONETIME ONE Stop: 12/13/19 02:59 Last Admin: 12/12/19 23:26 Dose: 130 mls/hr Acetylcysteine 8,100 mg/ (Dextrose/Water) 1,040.5 mls @ 65.031 mls/hr IV ONETIME ONE Stop: 12/13/19 18:59 Last Admin: 12/13/19 03:24 Dose: 65.031 mls/hr Magnesium Sulfate 2 gm/ Premix 50 mls @ 25 mls/hr IV ONETIME ONE Stop: 12/13/19 03:04 Last Admin: 12/13/19 01:42 Dose: 25 mls/hr Potassium Chloride 10 meq/ (Premix) 100 mls @ 100 mls/hr IV Q1H BRIANNA Stop: 12/13/19 05:14 Last Admin: 12/13/19 04:46 Dose: 100 mls/hr Potassium Phosphate 30 mmole/ (Sodium Chloride) 510 mls @ 102 mls/hr IV ONETIME ONE Stop: 12/13/19 18:59 Last Admin: 12/13/19 13:47 Dose: 102 mls/hr Sodium Chloride (Normal Saline) Confirm Administered Dose 1,000 mls @ as directed .ROUTE .STK-MED ONE Stop: 12/13/19 16:38 Last Admin: 12/13/19 16:53 Dose: Not Given Lactated Ringer's (Ringers, Lactated) 1,000 mls @ 999 mls/hr IV .BOLUS ONE Stop: 12/13/19 17:56 Last Admin: 12/13/19 17:01 Dose: 999 mls/hr Succinylcholine Chloride 200 (mg/ Sodium Chloride) 210 mls @ 30 mls/hr IV TITRATE BRIANNA Last Admin: 12/13/19 17:28 Dose: 30 mls/hr Sodium Chloride (Normal Saline) Confirm Administered Dose 1,000 mls @ as directed .ROUTE .STK-MED ONE Stop: 12/13/19 17:39 Last Admin: 12/13/19 18:18 Dose: Not Given Vecuronium Langley 100 mg/ (Sodium Chloride) 100 mls @ 4.95 mls/hr IV ASDIRECTED BRIANNA; Protocol Sodium Chloride (Normal Saline) Confirm Administered Dose 100 mls @ as directed .ROUTE .STK-MED ONE Stop: 12/13/19 21:04 Last Admin: 12/13/19 21:36 Dose: 1 mls/hr Sodium Chloride (Normal Saline) Confirm Administered Dose 100 mls @ as directed .ROUTE .STK-MED ONE Stop: 12/13/19 23:06 Last Admin: 12/13/19 23:21 Dose: 1 mls/hr Potassium Chloride 10 meq/ (Premix) 100 mls @ 100 mls/hr IV Q1H [facility] Stop: 12/14/19 08:29 Last Admin: 12/14/19 07:28 Dose: 100 mls/hr Sodium Chloride (Normal Saline) Confirm Administered Dose 500 mls @ as directed .ROUTE .STK-MED ONE Stop: 12/14/19 08:55 Last Admin: 12/14/19 09:00 Dose: Not Given Vecuronium Langley 10 mg/ (Sodium Chloride) 100 mls @ 49.55 mls/hr IV ONETIME ONE; Protocol Stop: 12/13/19 19:46 Last Admin: 12/14/19 14:20 Dose: Not Given Ampicillin Sodium/Sulbactam (Sodium 3 gm/ Sodium Chloride) 100 mls @ 200 mls/ hr IV Q6H [facility] Last Admin: 12/15/19 17:34 Dose: Not Given Vancomycin HCl 500 mg/ Sodium (Chloride) 250 mls @ 166.667 mls/hr IV ONETIME ONE Stop: 12/15/19 18:31 Last Admin: 12/15/19 17:34 Dose: Not Given Piperacillin Sod/Tazobactam (Sod 4.5 gm/ Sodium Chloride) 100 mls @ 200 mls/hr IV ONETIME ONE Stop: 12/15/19 17:44 Last Admin: 12/15/19 17:19 Dose: 200 mls/hr Vancomycin HCl 1 gm/Vancomycin HCl 250 mg/ Sodium Chloride 500 mls @ 333.333 mls/hr IV Q8H [facility] Last Admin: 12/16/19 02:11 Dose: 333.333 mls/hr Vancomycin HCl 1 gm/Vancomycin HCl 250 mg/ Sodium Chloride 250 mls @ 166.667 mls/hr IV Q8H [facility] Last Admin: 12/16/19 18:02 Dose: 166.667 mls/hr Propofol (Diprivan 100 Ml) Confirm Administered Dose 100 mls @ as directed .ROUTE .STK-MED ONE Stop: 12/16/19 20:16 Last Admin: 12/16/19 20:58 Dose: Not Given Labetalol HCl (Normodyne) 5 mg IVPUSH ONETIME ONE; Protocol Stop: 12/13/19 16:56 Last Admin: 12/13/19 17:01 Dose: 5 mg Labetalol HCl (Normodyne) 10 mg IVPUSH ONETIME ONE; Protocol Stop: 12/13/19 17:06 Last Admin: 12/13/19 17:05 Dose: 10 mg Metoclopramide HCl (Reglan) 10 mg IVPUSH ONETIME ONE Stop: 12/12/19 12:30 Last Admin: 12/12/19 12:44 Dose: 10 mg Midazolam HCl (Versed 1 Mg/Ml) 2 mg IVPUSH ONETIME ONE Stop: 12/12/19 13:50 Last Admin: 12/12/19 13:49 Dose: 2 mg Midazolam HCl (Versed 1 Mg/Ml) 5 mg .ROUTE .STK-MED ONE Stop: 12/12/19 16:01 Midazolam HCl (Versed 1 Mg/Ml) 10 mg .ROUTE .STK-MED ONE Stop: 12/13/19 17:31 Pantoprazole Sodium (Protonix Iv) 40 mg IVPUSH Q24H BRIANNA Last Admin: 12/12/19 17:19 Dose: 40 mg Succinylcholine Chloride (Quelicin) 125 mg IV ONETIME ONE Stop: 12/12/19 13:52 Last Admin: 12/12/19 13:51 Dose: 125 mg Succinylcholine Chloride (Quelicin) 200 mg .ROUTE .STK-MED ONE Stop: 12/12/19 16:01 Succinylcholine Chloride (Quelicin) 200 mg IV ONETIME ONE Stop: 12/13/19 17:01 Last Admin: 12/13/19 17:15 Dose: 200 mg Vecuronium Langley (Vecuronium) 9 mg IVPUSH ONETIME ONE Stop: 12/12/19 14:02 Last Admin: 12/12/19 14:02 Dose: 9 mg Vecuronium Langley (Vecuronium) 10 mg .ROUTE .STK-MED ONE Stop: 12/12/19 16:01 Vecuronium Langley (Vecuronium) Confirm Administered Dose 10 mg .ROUTE .STK-MED ONE Stop: 12/13/19 20:59 Last Admin: 12/14/19 11:04 Dose: Not Given Vecuronium Langley (Vecuronium) Confirm Administered Dose 10 mg .ROUTE .STK-MED ONE Stop: 12/13/19 23:02 Last Admin: 12/14/19 11:05 Dose: Not Given Sepsis Event Note - Evaluation Sepsis Screening Result: No Definite Risk - Focused Exam Vital Signs: Vital Signs Temp Temp Pulse Resp BP BP BP 12/17/19 08:00 99.1 F 18 112/55 L 154/75 H 12/17/19 07:01 99.5 F 12/17/19 07:00 99.5 F 17 99/48 L 115/52 L 12/17/19 06:30 99.5 F 73 0 L 110/55 L 12/17/19 06:15 99.5 F 73 0 L 12/17/19 06:00 99.7 F 16 105/54 L 115/53 L 12/17/19 05:45 99.7 F 75 18 12/17/19 05:31 99.7 F 77 14 107/49 L 12/17/19 05:15 99.9 F 76 18 12/17/19 05:00 99.9 F 99.9 F 18 111/55 L 121/55 L 12/17/19 04:45 100.0 F 80 20 12/17/19 04:30 100.2 F 18 12/17/19 04:15 100.2 F 18 12/17/19 04:00 100.0 F 18 106/49 L 110/57 L 12/17/19 03:45 100.2 F 81 20 12/17/19 03:35 12/17/19 03:30 100.2 F 81 19 12/17/19 03:15 100.2 F 82 20 12/17/19 03:00 100.2 F 20 104/48 L 110/49 L 12/17/19 02:36 99.9 F 80 12/17/19 02:35 21 H 12/17/19 02:00 99.5 F 13 99/48 L 110/48 L 12/17/19 01:45 99.3 F 77 12/17/19 01:15 99.0 F 75 9 L 12/17/19 01:00 98.8 F 18 101/47 L 101/45 L 12/17/19 00:45 98.6 F 74 12 12/17/19 00:30 98.4 F 74 18 12/17/19 00:15 98.1 F 73 18 12/17/19 00:13 18 12/17/19 00:01 97.9 F 72 18 99/43 L 12/17/19 00:00 97.7 F 18 99/43 L 101/43 L 12/16/19 23:45 97.7 F 70 16 12/16/19 23:30 97.5 F 70 14 12/16/19 23:15 97.3 F 69 13 12/16/19 23:00 97.2 F 16 94/44 L 96/46 L 12/16/19 22:51 18 12/16/19 22:45 97.0 F 70 18 12/16/19 22:30 96.8 F L 71 18 12/16/19 22:25 96.8 F L 72 18 12/16/19 22:15 74 18 12/16/19 22:00 96.6 F L 18 101/41 L 119/51 L Pulse Ox Pulse Ox 12/17/19 08:00 99 100 12/17/19 07:01 12/17/19 07:00 98 12/17/19 06:30 97 12/17/19 06:15 98 12/17/19 06:00 98 12/17/19 05:45 97 97 12/17/19 05:31 95 12/17/19 05:15 98 12/17/19 05:00 98 12/17/19 04:45 96 12/17/19 04:30 12/17/19 04:15 12/17/19 04:00 98 12/17/19 03:45 97 12/17/19 03:35 97 12/17/19 03:30 97 12/17/19 03:15 97 12/17/19 03:00 98 12/17/19 02:36 97 12/17/19 02:35 99 12/17/19 02:00 99 12/17/19 01:45 98 12/17/19 01:15 100 12/17/19 01:00 97 12/17/19 00:45 100 12/17/19 00:30 99 12/17/19 00:15 100 12/17/19 00:13 100 12/17/19 00:01 100 12/17/19 00:00 100 02/23/20 23:45 100 12/16/19 23:30 100 12/16/19 23:15 99 12/16/19 23:00 100 12/16/19 22:51 98 12/16/19 22:45 98 12/16/19 22:30 99 12/16/19 22:25 100 12/16/19 22:15 98 12/16/19 22:00 100 Date Exam was Performed: 12/17/19 Time Exam was Performed: 09:56 - Problem List & Annotations (1) Suicide attempt by drug ingestion SNOMED Code(s): 35193173, 49437373 Code(s): T50.902A - POISONING BY UNSP DRUG/MEDS/BIOL SUBST, SELF-HARM, INIT Status: Acute Current Visit: Yes (2) Hypotension due to drugs Status: Acute Current Visit: Yes (3) Hypoxia SNOMED Code(s): 553669898 Code(s): R09.02 - HYPOXEMIA Status: Acute Current Visit: Yes (4) Intentional acetaminophen overdose SNOMED Code(s): 296881662 Code(s): T39.1X2A - POISONING BY 4-AMINOPHENOL DERIVATIVES, SELF-HARM, INIT Status: Acute Current Visit: Yes Qualifiers: Encounter type: initial encounter Qualified Code(s): T39.1X2A - Poisoning by 4-Aminophenol derivatives, intentional self-harm, initial encounter (5) Hyperglycemia SNOMED Code(s): 26470350 Code(s): R73.9 - HYPERGLYCEMIA, UNSPECIFIED Status: Acute Current Visit: Yes (6) Polysubstance abuse SNOMED Code(s): 814793779 Code(s): F19.10 - OTHER PSYCHOACTIVE SUBSTANCE ABUSE, UNCOMPLICATED Status : Acute Current Visit: Yes (7) Acute kidney injury SNOMED Code(s): 17183599, 02597356 Code(s): N17.9 - ACUTE KIDNEY FAILURE, UNSPECIFIED Status: Acute Current Visit: Yes (8) Calcium oxalate crystals in urine SNOMED Code(s): 357451164 Code(s): R82.998 - OTHER ABNORMAL FINDINGS IN URINE Status: Acute Current Visit: Yes - My Orders Last 24 Hours: My Active Orders 12/16/19 17:00 Pharmacy to Dose - Vancomycin 1 dose .XX ASDIRECTED PRN 12/17/19 01:55 Sodium Chloride 0.9% [Normal Saline] 500 ml IV ASDIRECTED 12/17/19 02:00 Vancomycin 1.75 gm Sodium Chloride 0.9% [Normal Saline] 500 ml IV Q8H 12/17/19 09:00 COMPREHENSIVE METABOLIC PN,CMP [CHEM] Routine MAGNESIUM [CHEM] DAILY PHOSPHORUS [CHEM] DAILY 12/17/19 09:33 Chest 1V Frontal [CR] Routine 12/18/19 08:20 CBC WITH AUTO DIFF [HEME] DAILY MAGNESIUM [CHEM] DAILY PHOSPHORUS [CHEM] DAILY 12/18/19 08:30 COMPREHENSIVE METABOLIC PN,CMP [CHEM] DAILY 12/19/19 08:20 CBC WITH AUTO DIFF [HEME] DAILY MAGNESIUM [CHEM] DAILY PHOSPHORUS [CHEM] DAILY 12/19/19 08:30 COMPREHENSIVE METABOLIC PN,CMP [CHEM] DAILY 12/20/19 08:20 CBC WITH AUTO DIFF [HEME] DAILY MAGNESIUM [CHEM] DAILY PHOSPHORUS [CHEM] DAILY 12/20/19 08:30 COMPREHENSIVE METABOLIC PN,CMP [CHEM] DAILY 12/21/19 08:20 CBC WITH AUTO DIFF [HEME] DAILY MAGNESIUM [CHEM] DAILY PHOSPHORUS [CHEM] DAILY 12/21/19 08:30 COMPREHENSIVE METABOLIC PN,CMP [CHEM] DAILY 12/22/19 08:20 CBC WITH AUTO DIFF [HEME] DAILY MAGNESIUM [CHEM] DAILY PHOSPHORUS [CHEM] DAILY 12/22/19 08:30 COMPREHENSIVE METABOLIC PN,CMP [CHEM] DAILY 12/23/19 08:20 CBC WITH AUTO DIFF [HEME] DAILY MAGNESIUM [CHEM] DAILY PHOSPHORUS [CHEM] DAILY 12/23/19 08:30 COMPREHENSIVE METABOLIC PN,CMP [CHEM] DAILY - Plan Plan:: Suicide attempt by drug ingestion Hypotension and hypoxemia due to medication overdose Acetaminophen toxicity Calcium oxalate crystals in urine in the setting of unknown amount of medications Acute kidney injury Polysubstance abuse (methamphetamines, opiates and oxycodone) Alert and responsive upon arrival to the ED --> decline in mental status --> intubated for airway protection BP dropped, non-responsive to IVF --> started on norepinephrine Elevated Tylenol level --> poison control contacted and recommended + NAC infusion--> 16 hour portion today Posion control recommended sedation with BDS--> requirin high doses of Versed and Propofol for sedation PLAN BY SYSTEMS Neurologic: Continue sedation with Versed and Propofol for now and taper down as tolerated. Goal RASS -4 to 0. Sedation vacation today Continue seizure precautions Minimize central acting medications as possible. Pulmonary: Continue mechanical ventilation with SBT today Endotracheal tube care by RT. Regular suctioning. Aspiration precautions. ABGs now Cardiovascular: Continue norepinephrine, taper down with MAP goal >65 CVP Monitoring. Continue norepinephrine, goal MAP above 65, taper down as tolerated IVF with LR at 250ml/hr Kidney and electrolytes: Monique catheter for output monitoring. Goal urine output >40ml/hr Repeat BMP in PM with Mg and PO4. Strict monitoring of intake, output and overall fluid balance. Maintain neutral as possible. Avoid nephrotoxic medications. Monitor electrolytes and replace as needed. Trend creatinine and BUN. GI, Liver and nutrition: Continue N-acetyl cysteine 21 hour infusion protocol. Repeat Tylenol level, CMP as well as PT/INR in PM Follow up with poison control OG tube care by nursing staff. Start enteral nutrition today Endocrine: Scheduled Accu-checks every 6 hours while NPO Hypoglycemia protocol in place. Infectious disease: Trend temperature. Panculture if febrile. No need for antibiotic therapy for now Hematology and coagulation: Monitor for signs of active bleeding. Repeat PT/INR at PM. No active bleeding, no coagulopathy to correct, no need to transfuse blood products at the moment. Goal Hb >7g/dL Musculoskeletal and skin: Bed turn rotation by nursing staff. Daily evaluation for pressure ulcers. Psychiatric: Pending records from [place] Obtain controlled substance monitoring program record for patient Psychiatry consult once appropriate Monitor for drug toxicities as per primary problem. PROPHYLAXIS: DVT- SCDs due to risk of coagulopathy secondary to Tylenol overdose GI- Pantoprazole CODE STATUS: FULL CODE DISPOSITION: Patient will remain admitted in the ICU for mechanical ventilation and monitorization of drug toxicities. Will do spontaneous breathing trial today He will need to transition to inpatient psychiatry once medically stable.
--- NOTE | 2019-12-17 13:04 | CR ---
Chest: Portable view of the chest was obtained. Comparison: Prior chest x-ray of 12/16/19 Nodular type density is noted within the left lung base measuring 4.3 cm. Continued follow-up is recommended to confirm that this does not persist. Increased density is noted within both lung bases which is improved from previous exam. Endotracheal tube is stable in position. Right jugular line is noted. Heart size and mediastinum are unchanged. Impression: 1. Slightly improved chest x-ray from previous study. 2. Nodular density as noted above, continued follow-up recommended. 3. Satisfactory position of endotracheal tube and right jugular line. Diagnostic code #3 This report was dictated in [place] [employer] Time
== END 2019-12-17 11:02 | DRG 917 ==
LOC: JD.ED 12:21 → EEVIPCON 16:16 → JD.ICU 16:16
PROVIDERS: ADMIT Internal Medicine; ATTEND Internal Medicine
PROC: 05HM33Z Insertion of Infusion Device into Right Internal Jugular Vein, Percutaneous Approach (ICD-10-PCS; 2019-12-12)
PROC: B543ZZA Ultrasonography of Right Jugular Veins, Guidance (ICD-10-PCS; 2019-12-12)
PROC: 0BH17EZ Insertion of Endotracheal Airway into Trachea, Via Natural or Artificial Opening (ICD-10-PCS; principal; 2019-12-13)
PROC: 5A1945Z Respiratory Ventilation, 24-96 Consecutive Hours (ICD-10-PCS; 2019-12-13)
PROC: 03HY32Z Insertion of Monitoring Device into Upper Artery, Percutaneous Approach (ICD-10-PCS; 2019-12-13)
DX: T43.622A Poisoning by amphetamines, intentional self-harm, initial encounter (principal); T50.902A Poisoning by unspecified drugs, medicaments and biological substances, intentional self-harm, initial encounter; J80 Acute respiratory distress syndrome; R09.02 Hypoxemia; J69.0 Pneumonitis due to inhalation of food and vomit; N17.9 Acute kidney failure, unspecified; T39.1X2A Poisoning by 4-Aminophenol derivatives, intentional self-harm, initial encounter; I10 Essential (primary) hypertension; T40.602A Poisoning by unspecified narcotics, intentional self-harm, initial encounter; T40.2X2A Poisoning by other opioids, intentional self-harm, initial encounter; F32.9 Major depressive disorder, single episode, unspecified; I95.2 Hypotension due to drugs; R82.998 Other abnormal findings in urine; R73.9 Hyperglycemia, unspecified; Z79.899 Other long term (current) drug therapy; Z99.81 Dependence on supplemental oxygen
CPT/HCPCS: 31500; 36415; 36556; 36600; 43752; 51702; 71045; 80053; 80306; 80307 ×4; 81001; 82803; 83605; 83735; 84443; 85025; 93005; 96361; 96374; 99285; J0330; J2250 ×3; J2704; J2765; J3490 ×2; J7030; J7042; J7050; J7060; J7120; 71250; 71250-26; 80048; 80202; 82436; 82570; 82962; 84100; 84133; 84145; 84156; 84300; 85027; 85610; 87040; 87070; 87077; 87186; 87205; 93010; 94003; C9113; G0480; J0132; J1170; J1642; J1956; J2060; J2543; J3010; J3370; J3475; J3480; J7040